=== PATIENT | female | born 1945 | race Caucasian/White ===

== ENCOUNTER 2016-11-29 12:27 | Inpatient (IN) | payer MEDICARE ==
[~2016-11-29] VITALS: Ht 177.8 cm; Wt 128.5 kg
[~2016-11-29 12:27] MED LIST: ASPI-496 PO; ATEN50TA41 PO; CITA40TA5 PO; CLON-365 PO; DILT60TA30 PO; DOCU-30 PO; FERR325T10 PO; FISH1CAP PO; FURO20TA3 PO; GABA300C10 PO; HYDR-3307 PO; LEVO100T5 PO; METH750T87 PO; NIAC500T9 PO; OMEG-69 PO; OMEP-110 PO; POTA10TA5 PO; ROPI2TAB4 PO; TAMS0.4C2 PO; VITA150T PO; cranberry PO
[2016-11-29 13:09] VITALS: BP 144/78
[2016-11-29] MEDS ORDERED: BUPIVACAINE/PF-EPI 0.25% 1:200K ONE (14:27)
[2016-11-29] MEDS ORDERED: BACITRACIN 50,000 UNIT ONE (14:27)
[2016-11-29] MEDS ORDERED: NEOSPORIN OINT, 15GM ONE (14:27)
[2016-11-29] MEDS ORDERED: THROMBIN 5,000 UNIT VIAL TP ONE (14:27)
[2016-11-29] MEDS ORDERED: VANCOMYCIN 1,000 MG ONE (14:32)
[2016-11-29] MEDS ORDERED: FENTANYL PF 250 MCG/5ML ONE (14:36)
[2016-11-29] MEDS ORDERED: KETAMINE 10 MG/ML, 20ML ONE (14:36)
[2016-11-29] MEDS ORDERED: LIDOCAINE 2% 100MG/5ML SYRINGE ONE (14:40)
[2016-11-29] MEDS ORDERED: SUCCINYLCHOLINE 20 MG/ML, 10ML ONE (14:40)
[2016-11-29] MEDS ORDERED: ROCURONIUM 10 MG/ML ONE (14:40)
[2016-11-29] MEDS ORDERED: PROPOFOL 10 MG/ML, 20ML ONE (14:40)
[2016-11-29] MEDS ORDERED: ONDANSETRON 2MG/ML, 2ML ONE (14:40)
[2016-11-29] MEDS ORDERED: LABETALOL 5MG/ML ONE (14:40)
[2016-11-29] MEDS ORDERED: CEFAZOLIN 1,000 MG ONE (14:40)
[2016-11-29] MEDS ORDERED: BUPIVACAINE/PF 0.25% ONE (15:52)
[2016-11-29] MEDS ORDERED: PROMETHAZINE 25 MG/ML, 1ML IV PRN (16:00)
[2016-11-29] MEDS ORDERED: FENTANYL PF 100 MCG/2ML IV PRN (16:00)
[2016-11-29] MEDS ORDERED: ONDANSETRON 2MG/ML, 2ML IVPush PRN (16:00)
[2016-11-29] MEDS ORDERED: LABETALOL 5MG/ML, 20ML IV PRN ×2 (16:00→18:30)
[2016-11-29] MEDS ORDERED: METOPROLOL 1 MG/ML, 5ML IV PRN (16:00)
[2016-11-29] MEDS ORDERED: hydrALAzine 20 MG/ML, 1ML IV PRN (16:00)
[2016-11-29] MEDS ORDERED: OXYcodone 5 MG/5 ML ORAL.SOL UDC PO PRN (16:00)
[2016-11-29] MEDS ORDERED: HYDROmorphone 2 MG/ML, 1ML ONE (16:33)
[2016-11-29] MEDS ORDERED: OXYcodone 5 MG/5 ML ORAL.SOL UDC ONE (16:33)
[2016-11-29] MEDS: HYDROmorphone 1 MG/ML, 1ML IV PRN ×2 (16:35→16:50)
[2016-11-29] MEDS ORDERED: DIAZEPAM 5 MG/ML, 2ML ONE (16:46)
[2016-11-29] MEDS ORDERED: DIAZEPAM 5 MG/ML, 2ML IV PRN (17:30)
[2016-11-29 18:22] VITALS: BP 116/74
[2016-11-29] MEDS ORDERED: ONDANSETRON 2MG/ML, 2ML IV PRN (18:30)
[2016-11-29] MEDS ORDERED: morphine SULFATE 10 MG/ML, 1ML IV PRN (18:30)
[2016-11-29] MEDS ORDERED: MAGNESIUM HYDROXIDE 8%, 30ML UDC PO PRN (18:30)
[2016-11-29] MEDS ORDERED: DIPHENHYDRAMINE 50 MG CAPSULE PO PRN (18:30)
[2016-11-29] MEDS ORDERED: HYDROcodone/APAP 5/325 TABLET PO PRN (18:30)
[2016-11-29] MEDS ORDERED: BISACODYL 10 MG SUPP PR PRN (18:30)
[2016-11-29] MEDS ORDERED: PROMETHAZINE 25 MG/ML, 1ML IM PRN (18:30)
[2016-11-29] MEDS: D5%-0.9% NACL+KCL 20MEQ 1,000 ML IV SCH (20:32)
[2016-11-29] MEDS: METHOCARBAMOL 750 MG TABLET PO PRN (20:33)
[2016-11-29] MEDS: OXYcodone/APAP 5/325MG TABLET PO PRN (20:33)
[2016-11-29] MEDS ORDERED: HYDROcodone/APAP 10/325 MG TABLET PO PRN (21:00)
[2016-11-29] MEDS ORDERED: ZOLPIDEM 5MG TABLET PO PRN (21:00)
[2016-11-29] MEDS ORDERED: DOCUSATE 100 MG CAPSULE PO PRN (21:00)
[2016-11-29] MEDS: ROPINIROLE 1MG TABLET PO SCH (23:05)
[2016-11-29] MEDS: GABAPENTIN 400 MG CAPSULE PO SCH (23:05)
[2016-11-29] MEDS: DILTIAZEM 60 MG TABLET PO SCH (23:05)
[2016-11-29] MEDS: CEFAZOLIN PMX 1GM/50ML 50 ML IVPB SCH (23:06)
[2016-11-29 23:55] VITALS: BP 108/73
[2016-11-30] MEDS: OXYcodone/APAP 5/325MG TABLET PO PRN ×4 (00:20→20:12)
[2016-11-30 03:39] VITALS: BP 104/63
[2016-11-30] MEDS: METHOCARBAMOL 750 MG TABLET PO PRN ×2 (04:25→20:40)
[2016-11-30] MEDS: D5%-0.9% NACL+KCL 20MEQ 1,000 ML IV SCH ×2 (05:45→14:58)
[2016-11-30] MEDS: ROPINIROLE 1MG TABLET PO SCH ×4 (06:52→20:13)
[2016-11-30] MEDS: CEFAZOLIN PMX 1GM/50ML 50 ML IVPB SCH ×2 (06:52→16:10)
[2016-11-30] MEDS: OMEPRAZOLE 20 MG CAPSULE.DR PO SCH (06:53)
[2016-11-30] MEDS: ATENOLOL 50 MG TABLET PO SCH (06:53)
[2016-11-30] MEDS: LEVOTHYROXINE 100 MCG TABLET PO SCH (06:53)
[2016-11-30 07:42] VITALS: BP 81/51
[2016-11-30] MEDS: CITALOPRAM 20 MG TABLET PO SCH (08:35)
[2016-11-30] MEDS: TAMSULOSIN 0.4 MG CAP.ER.24H PO SCH (08:35)
[2016-11-30] MEDS: DOXYCYCLINE 100MG TABLET PO SCH ×2 (08:35→20:13)
[2016-11-30] MEDS: GABAPENTIN 400 MG CAPSULE PO SCH ×2 (08:35→20:13)
[2016-11-30] MEDS: VITAMIN E 400 UNITS CAPSULE PO SCH (08:35)
[2016-11-30] MEDS: SENNA/DOCUSATE TABLET PO SCH (08:55)
[2016-11-30] MEDS: DILTIAZEM 60 MG TABLET PO SCH ×2 (10:40→20:46)
[2016-11-30 15:03] VITALS: BP 80/50
[2016-11-30 20:58] VITALS: BP 94/57
[2016-12-01] MEDS: OXYcodone/APAP 5/325MG TABLET PO PRN ×3 (00:08→12:09)
[2016-12-01] MEDS: CEFAZOLIN PMX 1GM/50ML 50 ML IVPB SCH ×2 (00:09→09:01)
[2016-12-01] MEDS: D5%-0.9% NACL+KCL 20MEQ 1,000 ML IV SCH ×2 (00:18→10:30)
[2016-12-01 02:41] VITALS: BP 106/69
[2016-12-01] MEDS: LEVOTHYROXINE 100 MCG TABLET PO SCH (06:37)
[2016-12-01] MEDS: ROPINIROLE 1MG TABLET PO SCH ×2 (06:37→11:48)
[2016-12-01 07:16] VITALS: BP 105/67
[2016-12-01 08:59] VITALS: BP 107/67
[2016-12-01] MEDS: ATENOLOL 50 MG TABLET PO SCH (08:59)
[2016-12-01] MEDS: VITAMIN E 400 UNITS CAPSULE PO SCH (09:01)
[2016-12-01] MEDS: DILTIAZEM 60 MG TABLET PO SCH (09:01)
[2016-12-01] MEDS: TAMSULOSIN 0.4 MG CAP.ER.24H PO SCH (09:01)
[2016-12-01] MEDS: SENNA/DOCUSATE TABLET PO SCH (09:01)
[2016-12-01] MEDS: DOXYCYCLINE 100MG TABLET PO SCH (09:02)
[2016-12-01] MEDS: OMEPRAZOLE 20 MG CAPSULE.DR PO SCH (09:02)
[2016-12-01] MEDS: GABAPENTIN 400 MG CAPSULE PO SCH (09:02)
[2016-12-01] MEDS: CITALOPRAM 20 MG TABLET PO SCH (09:02)
[2016-12-01] MEDS ORDERED: OXYC-302 PO (12:29)
[2016-12-01] MEDS ORDERED: DOXY100T PO (12:30)
== END 2016-12-01 12:50 | disposition home or self-care (01) | DRG 908 ==
LOC: OR 12:27 → 4NOR 12:50 → OR 18:07 → 4NOR 18:08 → DCLOUNGE 12-01 12:27
PROVIDERS: ADMIT Neurological Surgery; ATTEND Neurological Surgery
PROC: 01NB0ZZ Release Lumbar Nerve, Open Approach (ICD-10-PCS; 2016-11-29)
PROC: 0T9B70Z Drainage of Bladder with Drainage Device, Via Natural or Artificial Opening (ICD-10-PCS; 2016-11-29)
PROC: 009U0ZZ Drainage of Spinal Canal, Open Approach (ICD-10-PCS; principal; 2016-11-29 15:00)
PROC: 5A09357 Assistance with Respiratory Ventilation, Less than 24 Consecutive Hours, Continuous Positive Airway Pressure (ICD-10-PCS; 2016-11-30)
DX: G97.63 Postprocedural seroma of a nervous system organ or structure following a nervous system procedure (principal); Z68.41 Body mass index [BMI] 40.0-44.9, adult; M48.06 Spinal stenosis, lumbar region; M47.816 Spondylosis without myelopathy or radiculopathy, lumbar region; E66.01 Morbid (severe) obesity due to excess calories; M54.9 Dorsalgia, unspecified; Z88.8 Allergy status to other drugs, medicaments and biological substances; Z87.891 Personal history of nicotine dependence; R33.9 Retention of urine, unspecified; R20.0 Anesthesia of skin
CPT/HCPCS: 81003; 87070; 87075; 87205; J0690; J1170; J2405; J2704; J3010; J3360; J3370; J3490; J0330; J3480

== ENCOUNTER 2018-06-04 14:08 | Emergency (ER) | payer MEDICARE ==
[~2018-06-04] VITALS: Ht 175.3 cm; Wt 139.5 kg
[~2018-06-04 14:08] MED LIST changes: -CLON-365 PO; +CLON1TAB11 PO; +DOCU-131 PO; -DOCU-30 PO; +DOXY100T PO; -FERR325T10 PO; +FERR325T17 PO; +OXYC-302 PO
[2018-06-04] MEDS ORDERED: GABA-827 PO (14:51)
[2018-06-04 14:54] LABS: MD YES
[2018-06-04] MEDS ORDERED: CRAN500C PO (14:54)
[2018-06-04 15:01] LABS: MEAN CORPUSCULAR HEMOGLOBIN 19.4 pg (27.0-34.8); MEAN CORPUSCULAR VOLUME 65.3 fL (80-100); MEAN PLATELET VOLUME 7.8 fL (7.4-10.4); PLATELET COUNT 372 x10^3/uL (130-400); RED BLOOD COUNT 3.65 x10^6/uL (3.82-5.3); RED CELL DISTRIBUTION WIDTH 18.9 % (9.6-15.2)
[2018-06-04 15:08] LABS: ALBUMIN 3.5 g/dL (3.4-5.0); ANION GAP 8 mmol/L (5-15); CALCIUM 8.7 mg/dL (8.5-10.1); CHLORIDE 103 mmol/L (98-107); CREATININE 0.98 mg/dL (0.55-1.02)
[2018-06-04 15:48] LABS: ANISOCYTOSIS 1+; BAND#(MANUAL) 0.17 x10^3/uL; BANDS%(MANUAL) 2 % (0-7); EOS#(MANUAL) 0.42 x10^3/uL (0.0-0.4); EOS% (MANUAL) 5 % (1-7); LYMPHS% (MANUAL) 19 % (22-44); MEAN CORPUSCULAR HGB CONC 29.7 g/dL (32.4-35.8); MONOS#(MANUAL) 0.42 x10^3/uL (0.3-2.7); MONOS% (MANUAL) 5 % (2-9); SEGS% (MANUAL) 69 % (42-75)
[2018-06-04 15:49] LABS: <PLATELET ESTIMATE> ADEQUATE; <PLT MORPHOLOGY> NORMAL PLT MORPH; HYPOCHROMIA 1+; MICROCYTOSIS 1+; OVALOCYTES 1+; POLYCHROMASIA 1+
[2018-06-04 16:07] VITALS: BP 138/64
[2018-06-04 16:24] VITALS: BP 138/64
[2018-06-04] MEDS ORDERED: ADENOSINE 6 MG/2 ML ONE (16:28)
[2018-06-04 18:12] VITALS: BP_SYST 154; BP_SYST 157; BP_DIAS 53; BP_DIAS 71
[2018-06-04 19:34] VITALS: BP 166/66
[2018-06-04 20:06] VITALS: BP 159/72
== END 2018-06-04 20:08 | disposition home or self-care (01) ==
LOC: ED 16:40
DX: K92.2 Gastrointestinal hemorrhage, unspecified (principal); D50.0 Iron deficiency anemia secondary to blood loss (chronic); I10 Essential (primary) hypertension; G62.9 Polyneuropathy, unspecified; Z87.891 Personal history of nicotine dependence
CPT/HCPCS: 36415; 80048; 82040; 85025; 86850; 86900; 86923; 99284; P9016

== ENCOUNTER 2018-08-06 13:30 | Inpatient (IN) | payer MEDICARE ==
[~2018-08-06] VITALS: Ht 167.6 cm; Wt 142.0 kg
[2018-08-06] VITALS (7 sets, daily range): BP systolic 98–132; BP diastolic 34–80
[~2018-08-06 13:30] MED LIST changes: +CARV12.52 PO; +CRAN500C PO; +GABA-827 PO
[2018-08-06] MEDS ORDERED: IRON (14:21)
[2018-08-06 14:24] LABS: MEAN CORPUSCULAR HEMOGLOBIN 25.7 pg (27.0-34.8); MEAN CORPUSCULAR HGB CONC 32.1 g/dL (32.4-35.8); MEAN PLATELET VOLUME 7.7 fL (7.4-10.4); PLATELET COUNT 296 x10^3/uL (130-400)
[2018-08-06 14:26] LABS: ANION GAP 9 mmol/L (5-15); CHLORIDE 105 mmol/L (98-107)
[2018-08-06 14:27] LABS: INTERNATIONAL NORMALIZED RATIO 1.07 (0.93-1.1); PROTHROMBIN TIME 11.3 Seconds (9.6-11.5)
[2018-08-06] MEDS ORDERED: SODIUM CHLORIDE FLUSH 10ML SYR IVF ONE (14:30)
[2018-08-06 14:54] LABS: % IRON SATURATION 3 % (20-55); IRON LEVEL 11 mcg/dL (50-170); TOTAL IRON BINDING CAPACITY 416 mcg/dL (250-450)
[2018-08-06 14:57] LABS: MD YES
[2018-08-06 15:00] LABS: EOS#(MANUAL) 0.16 x10^3/uL (0.0-0.4); EOS% (MANUAL) 2 % (1-7); LYMPH#(MANUAL) 1.22 x10^3/uL (1-3.4); LYMPHS% (MANUAL) 15 % (22-44); MONOS#(MANUAL) 0.81 x10^3/uL (0.3-2.7); MONOS% (MANUAL) 10 % (2-9); SEG#(MANUAL) 5.91 x10^3/uL (1.8-6.8); SEGS% (MANUAL) 73 % (42-75)
[2018-08-06 15:01] LABS: ANISOCYTOSIS 2+; MICROCYTOSIS 2+
[2018-08-06 15:02] LABS: HYPOCHROMIA 2+; POLYCHROMASIA 1+
[2018-08-06 15:03] LABS: <PLATELET ESTIMATE> ADEQUATE; OVALOCYTES 1+
[2018-08-06 15:04] LABS: <PLT MORPHOLOGY> NORMAL PLT MORPH
[2018-08-06] MEDS ORDERED: ONDANSETRON 2MG/ML, 2ML IVPush PRN (16:00)
[2018-08-06] MEDS ORDERED: ACETAMINOPHEN 325 MG TABLET PO PRN (16:00)
[2018-08-06] MEDS ORDERED: GOLYTELY 4,000ML ORAL.SOL PO ONE (17:00)
[2018-08-06] MEDS: CARVEDILOL 12.5 MG TABLET PO SCH (21:13)
[2018-08-06] MEDS: TAMSULOSIN 0.4 MG CAP.ER.24H PO SCH (21:13)
[2018-08-06] MEDS: GABAPENTIN 400 MG CAPSULE PO SCH (21:13)
[2018-08-07] VITALS (10 sets, daily range): BP systolic 110–146; BP diastolic 66–83
[2018-08-07] MEDS ORDERED: GOLYTELY 4,000ML ORAL.SOL ONE (02:22)
[2018-08-07 05:27] LABS: ANION GAP 6 mmol/L (5-15); CALCIUM 8.2 mg/dL (8.5-10.1); CHLORIDE 106 mmol/L (98-107); CREATININE 0.97 mg/dL (0.55-1.02)
[2018-08-07] MEDS: LEVOTHYROXINE 100 MCG TABLET PO SCH ×2 (05:31→08:37)
[2018-08-07 05:45] LABS: MEAN CORPUSCULAR HEMOGLOBIN 27.9 pg (27.0-34.8); MEAN CORPUSCULAR HGB CONC 33.4 g/dL (32.4-35.8); MEAN CORPUSCULAR VOLUME 83.7 fL (80-100); PLATELET COUNT 292 x10^3/uL (130-400); RED BLOOD COUNT 2.64 x10^6/uL (3.82-5.3); RED CELL DISTRIBUTION WIDTH 20.1 % (9.6-15.2)
[2018-08-07 06:06] LABS: MD YES
[2018-08-07 06:27] LABS: EOS#(MANUAL) 0.17 x10^3/uL (0.0-0.4); EOS% (MANUAL) 2 % (1-7); LYMPH#(MANUAL) 1.03 x10^3/uL (1-3.4); LYMPHS% (MANUAL) 12 % (22-44); MONOS#(MANUAL) 0.17 x10^3/uL (0.3-2.7); MONOS% (MANUAL) 2 % (2-9); SEG#(MANUAL) 7.22 x10^3/uL (1.8-6.8); SEGS% (MANUAL) 84 % (42-75)
[2018-08-07 06:37] LABS: <PLATELET ESTIMATE> ADEQUATE; <PLT MORPHOLOGY> NORMAL PLT MORPH; ANISOCYTOSIS 2+; HYPOCHROMIA 1+; MICROCYTOSIS 1+; OVALOCYTES 1+
[2018-08-07] MEDS ORDERED: MIDAZOLAM 1 MG/ML, 2ML ONE (07:49)
[2018-08-07] MEDS ORDERED: FENTANYL PF 250 MCG/5ML ONE (07:50)
[2018-08-07] MEDS ORDERED: PROPOFOL 10 MG/ML, 20ML ONE (08:05)
[2018-08-07] MEDS ORDERED: GLYCOPYRROLATE 0.2MG/1ML, 5ML ONE (08:05)
[2018-08-07] MEDS ORDERED: ROCURONIUM 10MG/ML,5ML ONE (08:05)
[2018-08-07] MEDS ORDERED: SUCCINYLCHOLINE 20 MG/ML, 10ML ONE (08:05)
[2018-08-07] MEDS ORDERED: NEOSTIGMINE 1 MG/ML, 10ML ONE (08:05)
[2018-08-07] MEDS: PANTOPRAZOLE 40 MG IV IVPush SCH (08:37)
[2018-08-07] MEDS: GABAPENTIN 400 MG CAPSULE PO SCH ×2 (08:37→21:05)
[2018-08-07] MEDS: CARVEDILOL 12.5 MG TABLET PO SCH ×2 (08:37→21:00)
[2018-08-07] MEDS ORDERED: OMEPRAZOLE 20 MG CAPSULE.DR PO SCH (09:00)
[2018-08-07] MEDS ORDERED: LEVOTHYROXINE 100 MCG TABLET PO SCH (09:00)
[2018-08-07] MEDS ORDERED: FENTANYL PF 100 MCG/2ML IV PRN (09:30)
[2018-08-07] MEDS ORDERED: ONDANSETRON ODT 8 MG PO PRN (09:30)
[2018-08-07] MEDS ORDERED: hydrALAzine 20 MG/ML, 1ML IV PRN (09:30)
[2018-08-07] MEDS ORDERED: ONDANSETRON 2MG/ML, 2ML IV PRN (09:30)
[2018-08-07] MEDS ORDERED: OXYcodone 5 MG/5 ML ORAL.SOL UDC PO PRN (09:30)
[2018-08-07] MEDS ORDERED: LABETALOL 5MG/ML, 20ML IV PRN (09:30)
[2018-08-07] MEDS ORDERED: HYDROmorphone 1 MG/ML, 1ML IV PRN (09:30)
[2018-08-07] MEDS ORDERED: PROMETHAZINE 12.5 MG SUPP PR PRN (09:30)
[2018-08-07] MEDS: IRON SUCROSE COMPLEX 100MG/5ML IV SCH (11:58)
[2018-08-07] MEDS ORDERED: PREG150C PO (15:03)
[2018-08-07] MEDS ORDERED: PRAM1.5T7 PO (15:04)
[2018-08-07] MEDS ORDERED: HYDR25SU21 RC (16:15)
[2018-08-07] MEDS: HYDROCORTISONE 25 MG SUPP PR SCH (16:34)
[2018-08-07] MEDS ORDERED: FUROSEMIDE 20 MG/2 ML IV ONE (18:00)
[2018-08-07] MEDS ORDERED: TEMPLATE NON-FORMULARY MED. (Cranberry Extract** (Cran-Max**) 500 MG) PO SCH (21:00)
[2018-08-07] MEDS: PRAMIPEXOLE 0.5MG TABLET PO SCH (21:05)
[2018-08-07] MEDS: PREGABALIN 150 MG CAPSULE PO SCH (21:05)
[2018-08-07] MEDS: TAMSULOSIN 0.4 MG CAP.ER.24H PO SCH (21:05)
[2018-08-08 04:39] VITALS: BP 138/79
[2018-08-08 04:59] LABS: MEAN CORPUSCULAR HEMOGLOBIN 27.5 pg (27.0-34.8); MEAN CORPUSCULAR HGB CONC 32.8 g/dL (32.4-35.8); MEAN CORPUSCULAR VOLUME 83.8 fL (80-100); MEAN PLATELET VOLUME 7.8 fL (7.4-10.4); PLATELET COUNT 297 x10^3/uL (130-400); RED BLOOD COUNT 3.03 x10^6/uL (3.82-5.3)
[2018-08-08 06:00] LABS: BASOPHILS # (AUTO) 0.03 x10^3/uL (0-0.1); BASOPHILS % (AUTO) 1 % (0-1); EOSINOPHILS # (AUTO) 0.25 x10^3/uL (0-0.4); EOSINOPHILS % (AUTO) 3 % (1-7); LYMPHOCYTES # (AUTO) 1.22 x10^3/uL (1-3.4); LYMPHOCYTES % (AUTO) 17 % (22-44); MD SCAN; MONOCYTES # (AUTO) 0.58 x10^3/uL (0.2-0.8); MONOCYTES % (AUTO) 8 % (2-9); NEUTROPHILS # (AUTO) 5.29 x10^3/uL (1.8-6.8); NEUTROPHILS % (AUTO) 72 % (42-75)
[2018-08-08 08:05] VITALS: BP 140/82
[2018-08-08] MEDS ORDERED: CITALOPRAM 20 MG TABLET PO SCH (09:00)
[2018-08-08] MEDS: PREGABALIN 150 MG CAPSULE PO SCH (10:01)
[2018-08-08] MEDS: IRON SUCROSE COMPLEX 100MG/5ML IV SCH (10:01)
[2018-08-08] MEDS: PANTOPRAZOLE 40 MG IV IVPush SCH (10:01)
[2018-08-08] MEDS: GABAPENTIN 400 MG CAPSULE PO SCH (10:01)
[2018-08-08] MEDS: PRAMIPEXOLE 0.5MG TABLET PO SCH (10:02)
[2018-08-08] MEDS: CARVEDILOL 12.5 MG TABLET PO SCH (10:03)
[2018-08-08] MEDS: LEVOTHYROXINE 100 MCG TABLET PO SCH (10:03)
[2018-08-08] MEDS: HYDROCORTISONE 25 MG SUPP PR SCH (10:04)
== END 2018-08-08 14:45 | disposition home or self-care (01) | DRG 394 ==
LOC: ED 14:39 → EDIP 14:40 → ED 14:46 → 3NW 16:15
PROVIDERS: ADMIT Internal Medicine; ATTEND Internal Medicine
PROC: 30233N1 Transfusion of Nonautologous Red Blood Cells into Peripheral Vein, Percutaneous Approach (ICD-10-PCS; 2018-08-06)
PROC: 0DB68ZX Excision of Stomach, Via Natural or Artificial Opening Endoscopic, Diagnostic (ICD-10-PCS; 2018-08-07)
PROC: 0DBM8ZX Excision of Descending Colon, Via Natural or Artificial Opening Endoscopic, Diagnostic (ICD-10-PCS; 2018-08-07)
PROC: 0DBL8ZX Excision of Transverse Colon, Via Natural or Artificial Opening Endoscopic, Diagnostic (ICD-10-PCS; 2018-08-07)
PROC: 0DB98ZX Excision of Duodenum, Via Natural or Artificial Opening Endoscopic, Diagnostic (ICD-10-PCS; principal; 2018-08-07 08:00)
DX: K64.8 Other hemorrhoids (principal); Q27.30 Arteriovenous malformation, site unspecified; K90.9 Intestinal malabsorption, unspecified; D62 Acute posthemorrhagic anemia; I42.2 Other hypertrophic cardiomyopathy; J96.10 Chronic respiratory failure, unspecified whether with hypoxia or hypercapnia; Z68.43 Body mass index [BMI] 50.0-59.9, adult; K64.4 Residual hemorrhoidal skin tags; K57.30 Diverticulosis of large intestine without perforation or abscess without bleeding; K44.9 Diaphragmatic hernia without obstruction or gangrene; G47.33 Obstructive sleep apnea (adult) (pediatric); E66.01 Morbid (severe) obesity due to excess calories; E03.9 Hypothyroidism, unspecified; D50.9 Iron deficiency anemia, unspecified; G62.9 Polyneuropathy, unspecified; K52.9 Noninfective gastroenteritis and colitis, unspecified; I10 Essential (primary) hypertension; Z82.49 Family history of ischemic heart disease and other diseases of the circulatory system; Z87.891 Personal history of nicotine dependence; Z90.710 Acquired absence of both cervix and uterus; Z99.81 Dependence on supplemental oxygen; Z82.3 Family history of stroke; Z79.82 Long term (current) use of aspirin; Z88.8 Allergy status to other drugs, medicaments and biological substances
CPT/HCPCS: 36415; 80048; 82040; 82728; 83540; 83550; 84443; 84466; 85018; 85025; 85610; 85730; 86850; 86900; 86923; 88305; 90656; 93005; 99285; G0378; J1756; J2250; J2704; J2710; J3010; J3490; C9113; J0330; J1940; P9016

== ENCOUNTER 2018-08-19 13:24 | Inpatient (IN) | payer MEDICARE ==
[~2018-08-19] VITALS: Ht 177.8 cm; Wt 142.0 kg
[~2018-08-19 13:24] MED LIST changes: +HYDR25SU21 RC; +IRON; +PRAM1.5T7 PO; +PREG150C PO
--- NOTE | 2018-08-19 14:05 | NUR ---
ASSUMED CARE OF PT AT THIS TIME FROM LOBBY. AMBULATORY TO ROOM VIA OWN WHEELCHAIR/WALKER ACCOMPANIED BY FRIEND. 72 Y/[address] FULLER'S OFFICE FOR BLOOD TRANSFUSION. PER PT "I WAS AT 8.9 ON THURSDAY, GOT 2 UNITS ON THURSDAY AND THEN TODAY THEY SAID I WAS BACK DOWN TO 6.5 AND NEEDED ANOTHER TRANSFUSION. [address] LANDAVERDE DID COLONOSCOPY AND FOUND I HAVE HEMORRHOIDS, PLAN TO REMOVED Aug, THEY THINK THAT IS PART OF WHY I'M BLEEDING, I'VE BEEN SHORT OF BREATH AND USING 2L OF OXYGEN." DENIES ANY PAIN, CP, DIZZINESS. PT PALE, A&OX4. AWAITING EVAL BY ERP. CONT PULSE OX, BP, CARDIAC MONITORS APPLIED. VSS. FALL PRECAUTIONS IN PLACE. SIDE RAILS UPX2. ASSESSMENT COMPLETED. PT AMBULATED TO RESTROOM WITH OWN WALKER, STEADY GAIT, CLEAN CATCH UA COLLECTED. FRIEND AT BEDSIDE
--- NOTE | 2018-08-19 14:15 | NUR ---
DR. REED AT BEDSIDE FOR EVAL, AWAITING ORDERS
--- NOTE | 2018-08-19 14:24 | NUR ---
RAD AT BEDSIDE
[2018-08-19] MEDS ORDERED: SODIUM CHLORIDE FLUSH 10ML SYR IVF ONE (14:30)
[2018-08-19 14:35] LABS: MICROSCOPIC AUTO
[2018-08-19 14:36] LABS: CULTURE INDICATED? YES
--- NOTE | 2018-08-19 14:54 | NUR ---
RECEIVED REPORT FROM CATALINA ANGELES.
--- NOTE | 2018-08-19 14:55 | NUR ---
INFORMED CONSENT PROVIED TO PT BY DR. REED FOR BLOOD TRANSFUSION, CONSENT SIGNED BY PT AND MD AND PLACED ON PAPER CHART.
--- NOTE | 2018-08-19 15:00 | NUR ---
BEDSIDE REPORT AND CARE TO ANALY ARNOLD AT THIS TIME.
[2018-08-19 15:07] LABS: INTERNATIONAL NORMALIZED RATIO 1.07 (0.93-1.1); PROTHROMBIN TIME 11.3 Seconds (9.6-11.5)
[2018-08-19 15:09] LABS: ALANINE AMINOTRANSFERASE 20 U/L (12-78); ALBUMIN 3.1 g/dL (3.4-5.0); ANION GAP 5 mmol/L (5-15); CALCIUM 8.1 mg/dL (8.5-10.1); CHLORIDE 105 mmol/L (98-107); CREATININE 1.22 mg/dL (0.55-1.02)
--- NOTE | 2018-08-19 15:09 | NUR ---
PT BP NOTED TO HAVE DROPPED FROM 103/58 IN TRIAGE TO 85/40. ERP AWARE. PT TO RECEIVE BLOOD TRANSFUSION.
[2018-08-19 15:11] LABS: MEAN CORPUSCULAR HEMOGLOBIN 27.7 pg (27.0-34.8); MEAN CORPUSCULAR HGB CONC 31.6 g/dL (32.4-35.8); MEAN CORPUSCULAR VOLUME 87.6 fL (80-100); MEAN PLATELET VOLUME 8.4 fL (7.4-10.4); PLATELET COUNT 294 x10^3/uL (130-400); RED BLOOD COUNT 2.25 x10^6/uL (3.82-5.3); RED CELL DISTRIBUTION WIDTH 20.7 % (9.6-15.2)
[2018-08-19 15:12] LABS: ALKALINE PHOSPHATASE 59 U/L (45-117); BILIRUBIN,TOTAL 0.4 mg/dL (0.2-1.0); TOTAL PROTEIN 6.7 g/dL (6.4-8.2)
--- NOTE | 2018-08-19 15:20 | NUR ---
ERP NOTIFIED OF PT CXR. NO NEW ORDERS FOR BLOOD CULTURES/ANTX AT THIS TIME.
--- NOTE | 2018-08-19 15:29 | NUR ---
DOUGH MIXER: BLOOD BANK CALLED, BLOOD IS BEING PREPARED AT THIS TIME, SENDING PURPLE SLIP AT THIS TIME
[2018-08-19] MEDS ORDERED: SODIUM CHLORIDE 0.9% 1,000 ML IV ONE (15:41)
[2018-08-19 15:48] LABS: BASOPHILS # (AUTO) 0.02 x10^3/uL (0-0.1); BASOPHILS % (AUTO) 0 % (0-1); EOSINOPHILS # (AUTO) 0.19 x10^3/uL (0-0.4); EOSINOPHILS % (AUTO) 3 % (1-7); LYMPHOCYTES # (AUTO) 1.33 x10^3/uL (1-3.4); LYMPHOCYTES % (AUTO) 20 % (22-44); MD MORPH REVIEW ONLY; MONOCYTES # (AUTO) 0.48 x10^3/uL (0.2-0.8); MONOCYTES % (AUTO) 7 % (2-9); NEUTROPHILS # (AUTO) 4.53 x10^3/uL (1.8-6.8); NEUTROPHILS % (AUTO) 69 % (42-75)
[2018-08-19 15:49] LABS: <PLATELET ESTIMATE> ADEQUATE; <PLT MORPHOLOGY> NORMAL PLT MORPH; ANISOCYTOSIS 2+; HYPOCHROMIA 1+; MICROCYTOSIS 1+; OVALOCYTES 1+; POLYCHROMASIA 1+; TARGET CELLS 1+
[2018-08-19] MEDS ORDERED: SODIUM CHLORIDE FLUSH 10ML SYR IVF PRN (16:00)
[2018-08-19 16:04] VITALS: BP 75/33
[2018-08-19] MEDS ORDERED: SODIUM CHLORIDE 0.9% 1,000 ML IV SCH (16:19)
[2018-08-19 16:21] VITALS: BP 82/40
[2018-08-19] MEDS ORDERED: ACETAMINOPHEN 325 MG TABLET PO PRN (16:30)
[2018-08-19] MEDS ORDERED: DOCUSATE 100 MG CAPSULE PO PRN (16:30)
--- NOTE | 2018-08-19 16:32 | NUR ---
BLOOD INFUSING AT THIS TIME.
[2018-08-19 16:46] VITALS: BP 100/43
--- NOTE | 2018-08-19 16:46 | NUR ---
PT RESTING ON GURNEY. NADN. PERKINS.
--- NOTE | 2018-08-19 17:25 | NUR ---
PT RESTING ON ANI. ANÍBAL. VSS. BLOOD STILL INFUSING.
--- NOTE | 2018-08-19 17:42 | NUR ---
PT RESTING ON GURNEY. NADN. PERKINS.
[2018-08-19 18:18] VITALS: BP 114/42
--- NOTE | 2018-08-19 18:26 | NUR ---
BLOOD TRANSFUSION COMPLETE. PT RESTING ON ANI. NADN. PERKINS.
--- NOTE | 2018-08-19 18:35 | NUR ---
REPORT GIVEN TO LEXA KIRKPATRICK RN. ALL QUESTIONS ANSWERED. AWAITING PT TRANSPORT.
[2018-08-19 19:25] VITALS: BP 124/74
[2018-08-19 19:29] VITALS: BP 134/75
[2018-08-19] MEDS: TAMSULOSIN 0.4 MG CAP.ER.24H PO SCH (20:26)
[2018-08-19] MEDS: GABAPENTIN 400 MG CAPSULE PO SCH (20:26)
[2018-08-19] MEDS: PREGABALIN 150 MG CAPSULE PO SCH (20:27)
[2018-08-19] MEDS: PRAMIPEXOLE 0.5MG TABLET PO SCH (20:27)
[2018-08-20] VITALS (11 sets, daily range): BP systolic 94–145; BP diastolic 50–86
[2018-08-20 06:32] LABS: MEAN CORPUSCULAR HEMOGLOBIN 27.7 pg (27.0-34.8); MEAN CORPUSCULAR HGB CONC 32.3 g/dL (32.4-35.8); MEAN CORPUSCULAR VOLUME 85.9 fL (80-100); MEAN PLATELET VOLUME 7.8 fL (7.4-10.4); PLATELET COUNT 274 x10^3/uL (130-400); RED BLOOD COUNT 2.37 x10^6/uL (3.82-5.3); RED CELL DISTRIBUTION WIDTH 20.2 % (9.6-15.2)
[2018-08-20 06:37] LABS: CHLORIDE 110 mmol/L (98-107)
[2018-08-20 06:42] LABS: ANION GAP 6 mmol/L (5-15); CALCIUM 7.9 mg/dL (8.5-10.1); CREATININE 1.03 mg/dL (0.55-1.02)
[2018-08-20 07:39] LABS: BASOPHILS # (AUTO) 0.04 x10^3/uL (0-0.1); BASOPHILS % (AUTO) 1 % (0-1); EOSINOPHILS # (AUTO) 0.28 x10^3/uL (0-0.4); EOSINOPHILS % (AUTO) 5 % (1-7); LYMPHOCYTES # (AUTO) 1.32 x10^3/uL (1-3.4); LYMPHOCYTES % (AUTO) 23 % (22-44); MD SCAN; MONOCYTES # (AUTO) 0.61 x10^3/uL (0.2-0.8); MONOCYTES % (AUTO) 11 % (2-9); NEUTROPHILS # (AUTO) 3.47 x10^3/uL (1.8-6.8); NEUTROPHILS % (AUTO) 61 % (42-75)
[2018-08-20] MEDS: PREGABALIN 150 MG CAPSULE PO SCH ×2 (09:00→20:33)
[2018-08-20] MEDS: PRAMIPEXOLE 0.5MG TABLET PO SCH ×2 (09:00→20:33)
[2018-08-20] MEDS: LEVOTHYROXINE 100 MCG TABLET PO SCH (09:00)
[2018-08-20] MEDS: GABAPENTIN 400 MG CAPSULE PO SCH ×2 (09:00→20:33)
[2018-08-20] MEDS: HYDROCORTISONE 25 MG SUPP PR SCH (10:20)
[2018-08-20] MEDS ORDERED: MIDAZOLAM 1 MG/ML, 5ML ONE (15:02)
[2018-08-20] MEDS ORDERED: FENTANYL PF 100 MCG/2ML ONE (15:02)
[2018-08-20] MEDS: OMEPRAZOLE 20 MG CAPSULE.DR PO SCH (18:03)
[2018-08-20] MEDS: CITALOPRAM 20 MG TABLET PO SCH (18:04)
[2018-08-20] MEDS: IRON SUCROSE COMPLEX 100MG/5ML IV SCH (18:04)
[2018-08-20] MEDS: TAMSULOSIN 0.4 MG CAP.ER.24H PO SCH (20:33)
[2018-08-21 01:42] VITALS: BP 121/60
[2018-08-21 05:08] LABS: ANION GAP 6 mmol/L (5-15); CALCIUM 8.1 mg/dL (8.5-10.1); CHLORIDE 108 mmol/L (98-107)
[2018-08-21 05:09] LABS: CREATININE 0.88 mg/dL (0.55-1.02)
[2018-08-21 05:21] LABS: MEAN CORPUSCULAR HEMOGLOBIN 28.9 pg (27.0-34.8); MEAN CORPUSCULAR HGB CONC 32.8 g/dL (32.4-35.8); MEAN CORPUSCULAR VOLUME 88.3 fL (80-100); MEAN PLATELET VOLUME 7.9 fL (7.4-10.4); PLATELET COUNT 277 x10^3/uL (130-400); RED CELL DISTRIBUTION WIDTH 18.7 % (9.6-15.2)
[2018-08-21] MEDS: LEVOTHYROXINE 100 MCG TABLET PO SCH (05:45)
[2018-08-21 05:53] LABS: BASOPHILS # (AUTO) 0.03 x10^3/uL (0-0.1); BASOPHILS % (AUTO) 1 % (0-1); EOSINOPHILS # (AUTO) 0.34 x10^3/uL (0-0.4); EOSINOPHILS % (AUTO) 6 % (1-7); LYMPHOCYTES # (AUTO) 0.96 x10^3/uL (1-3.4); LYMPHOCYTES % (AUTO) 16 % (22-44); MONOCYTES # (AUTO) 0.55 x10^3/uL (0.2-0.8); MONOCYTES % (AUTO) 9 % (2-9); NEUTROPHILS # (AUTO) 4.04 x10^3/uL (1.8-6.8); NEUTROPHILS % (AUTO) 68 % (42-75)
[2018-08-21 05:56] LABS: MD SCAN
[2018-08-21] MEDS: CITALOPRAM 20 MG TABLET PO SCH (08:07)
[2018-08-21] MEDS: PRAMIPEXOLE 0.5MG TABLET PO SCH (08:07)
[2018-08-21] MEDS: OMEPRAZOLE 20 MG CAPSULE.DR PO SCH (08:07)
[2018-08-21] MEDS: IRON SUCROSE COMPLEX 100MG/5ML IV SCH (08:07)
[2018-08-21] MEDS: GABAPENTIN 400 MG CAPSULE PO SCH (08:07)
[2018-08-21] MEDS: PREGABALIN 150 MG CAPSULE PO SCH (08:07)
[2018-08-21] MEDS: HYDROCORTISONE 25 MG SUPP PR SCH (09:00)
[2018-08-21 09:23] VITALS: BP 125/69
== END 2018-08-21 14:10 | disposition home or self-care (01) | DRG 347 ==
LOC: ED 14:30 → EDIP 15:41 → 4WST 19:02
PROVIDERS: ADMIT Internal Medicine; ATTEND Internal Medicine
PROC: 30233N1 Transfusion of Nonautologous Red Blood Cells into Peripheral Vein, Percutaneous Approach (ICD-10-PCS; principal; 2018-08-19)
PROC: 06LY4CC Occlusion of Hemorrhoidal Plexus with Extraluminal Device, Percutaneous Endoscopic Approach (ICD-10-PCS; 2018-08-20)
PROC: 5A09357 Assistance with Respiratory Ventilation, Less than 24 Consecutive Hours, Continuous Positive Airway Pressure (ICD-10-PCS; 2018-08-21)
DX: K64.8 Other hemorrhoids (principal); N17.0 Acute kidney failure with tubular necrosis; D62 Acute posthemorrhagic anemia; J96.10 Chronic respiratory failure, unspecified whether with hypoxia or hypercapnia; Z68.41 Body mass index [BMI] 40.0-44.9, adult; I42.2 Other hypertrophic cardiomyopathy; J98.11 Atelectasis; Z88.8 Allergy status to other drugs, medicaments and biological substances; E03.9 Hypothyroidism, unspecified; Z66 Do not resuscitate; E66.01 Morbid (severe) obesity due to excess calories; E88.09 Other disorders of plasma-protein metabolism, not elsewhere classified; G47.33 Obstructive sleep apnea (adult) (pediatric); I11.9 Hypertensive heart disease without heart failure; K57.30 Diverticulosis of large intestine without perforation or abscess without bleeding; K64.4 Residual hemorrhoidal skin tags; Z78.0 Asymptomatic menopausal state; Z82.3 Family history of stroke; Z86.010 Personal history of colon polyps; Z90.710 Acquired absence of both cervix and uterus; Z99.81 Dependence on supplemental oxygen; Z90.49 Acquired absence of other specified parts of digestive tract
CPT/HCPCS: 36415; 36430; 71045; 80048; 80053; 81001; 85014; 85018; 85025; 85610; 85730; 86850; 86900; 86923; 87086; 93005; 94660; 99152; 99153; 99291; G0378; J1756; J2250; J3010; J7030; P9016

== ENCOUNTER 2018-08-27 13:52 | Inpatient (IN) | payer MEDICARE ==
[~2018-08-27] VITALS: Ht 177.8 cm; Wt 141.8 kg
[2018-08-27] VITALS (9 sets, daily range): BP systolic 92–132; BP diastolic 40–75
[2018-08-27] MEDS ORDERED: SODIUM CHLORIDE FLUSH 10ML SYR IVF ONE (14:30)
--- NOTE | 2018-08-27 14:30 | NUR ---
LATE ENTRY FOR 1430. FIRST CONTACT WITH PT. PT C/O RECTAL BLEEDING AND PAIN. PT STATES THAT "[facility] SENT ME HERE DUE TO LOW H&H." PT DENIES ABD PAIN/FEVER/N/V/D AT THIS TIME. PT AOX4. RESPS EVEN AND UNLABORED. ALL MONITORS IN PLACE. CALL LIGHT WITHIN REACH.
[2018-08-27 14:51] LABS: INTERNATIONAL NORMALIZED RATIO 1.09 (0.93-1.1); PROTHROMBIN TIME 11.5 Seconds (9.6-11.5)
[2018-08-27 14:54] LABS: ALANINE AMINOTRANSFERASE 14 U/L (12-78); ALBUMIN 2.9 g/dL (3.4-5.0); ANION GAP 6 mmol/L (5-15); CALCIUM 8.3 mg/dL (8.5-10.1); CHLORIDE 107 mmol/L (98-107); CREATININE 1.06 mg/dL (0.55-1.02); MEAN CORPUSCULAR HEMOGLOBIN 26.7 pg (27.0-34.8); MEAN CORPUSCULAR VOLUME 86.1 fL (80-100); MEAN PLATELET VOLUME 7.4 fL (7.4-10.4); PLATELET COUNT 261 x10^3/uL (130-400); RED BLOOD COUNT 1.99 x10^6/uL (3.82-5.3); RED CELL DISTRIBUTION WIDTH 18.7 % (9.6-15.2)
[2018-08-27 14:56] LABS: ALKALINE PHOSPHATASE 48 U/L (45-117); BILIRUBIN,TOTAL 0.4 mg/dL (0.2-1.0)
--- NOTE | 2018-08-27 14:58 | NUR ---
LAB CALLED ABOUT PT'S H&H. PT'S HGB 5.3/HCT17.2
[2018-08-27] MEDS ORDERED: PREG150C PO (15:09)
[2018-08-27] MEDS ORDERED: VITA1CAP7 PO (15:11)
[2018-08-27] MEDS ORDERED: RUTI500T PO (15:12)
--- NOTE | 2018-08-27 15:13 | NUR ---
HENRY ELLISON NOTIFIED CRITICAL HEMOGLOBIN 5.2/HCT 17.2 Addendum: 08/27/18 at 1515 by BENNETT HENRY ELLISON NOTIFIED CRITICAL HEMOGLOBIN 5.2/HCT 17.2 . NOTIFIED CURRENT BP 90/43, HR 80'S
[2018-08-27 15:32] LABS: BASOPHILS # (AUTO) 0.04 x10^3/uL (0-0.1); BASOPHILS % (AUTO) 1 % (0-1); EOSINOPHILS # (AUTO) 0.17 x10^3/uL (0-0.4); EOSINOPHILS % (AUTO) 2 % (1-7); LYMPHOCYTES % (AUTO) 16 % (22-44); MD SCAN; MONOCYTES # (AUTO) 0.66 x10^3/uL (0.2-0.8); MONOCYTES % (AUTO) 9 % (2-9); NEUTROPHILS % (AUTO) 72 % (42-75)
--- NOTE | 2018-08-27 15:38 | NUR ---
SBAR REPORT CALLED TO CATALINA BENITES. PRBCS ARRIVED.
--- NOTE | 2018-08-27 15:45 | NUR ---
blood consent form signed by HENRY Smith and pt.
--- NOTE | 2018-08-27 15:59 | NUR ---
BLOOD TRANSFUSION INITIATED AT 100ML/HR. LUNG SOUNDS CLEAR. PT AOX4. RESPS EVEN AND UNLABORED. 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 PIV SITE CDI, NO SWELLING AND REDNESS. PT TOLERATING WELL. PT DENIES S/S AT THIS TIME.
--- NOTE | 2018-08-27 16:01 | NUR ---
hospitalist Nikky FERRER at bedside to assess pt.
--- NOTE | 2018-08-27 16:29 | NUR ---
PT A&O, RESPS EVEN AND UNLABORED. 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 PIV SITE INFUSING BLOOD CDI WITH NO ERYTHEMA OR EDEMA. PT DENIES ANY SYMPTOMS. LUNG SOUNDS REMAIN CLEAR. VSS WITH PT ON BASELINE OXYGEN OF 2L/MIN. PT TRANSPORTED TO 378 AT THIS TIME, BLOOD INFUSION RATE INCREASED TO 150ML/HR PT IS TOLERATING TRANSFUSION WELL. PT'S WALLET SENT HOME WITH FAMILY, PT TRANSPORTED TO 378 WITH PURSE AND CELL PHONE. PT DECLINES PLACING ITEMS IN SAFEKEEPING AT THIS TIME.
[2018-08-27] MEDS ORDERED: hydrALAzine 20 MG/ML, 1ML IVPush PRN (16:30)
[2018-08-27] MEDS ORDERED: ACETAMINOPHEN 325 MG TABLET PO PRN (16:30)
[2018-08-27] MEDS ORDERED: PANTOPRAZOLE 80 MG in SODIUM CHLORIDE 0.9% 50 ML IV ONE (16:30)
[2018-08-27] MEDS ORDERED: ONDANSETRON 2MG/ML, 2ML IVPush PRN (16:30)
[2018-08-27] MEDS: SODIUM CHLORIDE 0.9% 1,000 ML IV SCH (17:30)
[2018-08-27] MEDS: PANTOPRAZOLE 80 MG in SODIUM CHLORIDE 0.9% 100 ML IV SCH (17:49)
[2018-08-27] MEDS: GABAPENTIN 400 MG CAPSULE PO SCH (22:03)
[2018-08-27] MEDS: TAMSULOSIN 0.4 MG CAP.ER.24H PO SCH (22:03)
[2018-08-27] MEDS: PREGABALIN 150 MG CAPSULE PO SCH (22:03)
[2018-08-27] MEDS: PRAMIPEXOLE 0.5MG TABLET PO SCH (22:03)
[2018-08-28 01:24] VITALS: BP 111/69
[2018-08-28] MEDS: PANTOPRAZOLE 80 MG in SODIUM CHLORIDE 0.9% 100 ML IV SCH ×3 (02:30→22:30)
[2018-08-28 03:02] LABS: ALANINE AMINOTRANSFERASE 15 U/L (12-78); ALBUMIN 2.6 g/dL (3.4-5.0); ANION GAP 3 mmol/L (5-15); CHLORIDE 108 mmol/L (98-107)
[2018-08-28 03:05] LABS: ALKALINE PHOSPHATASE 44 U/L (45-117); BILIRUBIN,TOTAL 0.9 mg/dL (0.2-1.0); CREATININE 0.95 mg/dL (0.55-1.02); TOTAL PROTEIN 5.7 g/dL (6.4-8.2)
[2018-08-28] MEDS: LEVOTHYROXINE 100 MCG TABLET PO SCH (05:39)
[2018-08-28 07:38] VITALS: BP 133/74
[2018-08-28] MEDS ORDERED: SILVER NITRATE STICK TP ONE (07:59)
[2018-08-28] MEDS ORDERED: FENTANYL PF 100 MCG/2ML ONE ×4 (08:24→15:00)
[2018-08-28] MEDS ORDERED: MIDAZOLAM 1 MG/ML, 5ML ONE (08:24)
[2018-08-28 08:30] LABS: MEAN CORPUSCULAR HEMOGLOBIN 28.2 pg (27.0-34.8); MEAN CORPUSCULAR HGB CONC 32.2 g/dL (32.4-35.8); MEAN CORPUSCULAR VOLUME 87.3 fL (80-100); MEAN PLATELET VOLUME 7.7 fL (7.4-10.4); PLATELET COUNT 264 x10^3/uL (130-400); RED BLOOD COUNT 2.36 x10^6/uL (3.82-5.3); RED CELL DISTRIBUTION WIDTH 17.6 % (9.6-15.2)
[2018-08-28 08:53] LABS: BASOPHILS # (AUTO) 0.03 x10^3/uL (0-0.1); BASOPHILS % (AUTO) 1 % (0-1); EOSINOPHILS # (AUTO) 0.19 x10^3/uL (0-0.4); EOSINOPHILS % (AUTO) 4 % (1-7); LYMPHOCYTES # (AUTO) 1.14 x10^3/uL (1-3.4); LYMPHOCYTES % (AUTO) 21 % (22-44); MD MORPH REVIEW ONLY; MONOCYTES # (AUTO) 0.51 x10^3/uL (0.2-0.8); MONOCYTES % (AUTO) 9 % (2-9); NEUTROPHILS # (AUTO) 3.65 x10^3/uL (1.8-6.8); NEUTROPHILS % (AUTO) 66 % (42-75)
[2018-08-28 09:10] LABS: <PLATELET ESTIMATE> ADEQUATE; <PLT MORPHOLOGY> NORMAL PLT MORPH; ANISOCYTOSIS 1+; HYPOCHROMIA 1+; MICROCYTOSIS 1+; POLYCHROMASIA 1+
[2018-08-28] MEDS ORDERED: PRAMIPEXOLE 0.25MG TABLET ONE (09:51)
[2018-08-28] MEDS: CITALOPRAM 20 MG TABLET PO SCH (09:54)
[2018-08-28] MEDS: PREGABALIN 150 MG CAPSULE PO SCH ×2 (09:54→21:57)
[2018-08-28] MEDS: GABAPENTIN 400 MG CAPSULE PO SCH ×2 (09:55→21:57)
[2018-08-28] MEDS: PRAMIPEXOLE 0.5MG TABLET PO SCH ×2 (09:56→21:57)
[2018-08-28 11:00] VITALS: BP 125/67
[2018-08-28 11:31] VITALS: BP 110/51
[2018-08-28] MEDS ORDERED: BUPIVACAINE/PF-EPI 0.5% 1:200K ONE (12:02)
[2018-08-28] MEDS: SODIUM CHLORIDE 0.9% 1,000 ML IV SCH (12:21)
[2018-08-28] MEDS ORDERED: MIDAZOLAM 1 MG/ML, 2ML ONE (12:50)
[2018-08-28] MEDS ORDERED: METOCLOPRAMIDE 5 MG/ML, 2ML IV PRN (13:00)
[2018-08-28] MEDS ORDERED: OXYcodone 5 MG/5 ML ORAL.SOL UDC PO PRN (13:00)
[2018-08-28] MEDS ORDERED: EPHEDRINE 50 MG/ML, 1ML IM PRN (13:00)
[2018-08-28] MEDS ORDERED: ACETAMINOPHEN 325 MG TABLET PO PRN (13:00)
[2018-08-28] MEDS ORDERED: LORazepam 2 MG/ML, 1ML IVPush PRN (13:00)
[2018-08-28] MEDS ORDERED: FENTANYL PF 100 MCG/2ML IV PRN (13:00)
[2018-08-28] MEDS ORDERED: MEPERIDINE/PF 25MG/0.5ML IVPush PRN (13:00)
[2018-08-28] MEDS ORDERED: GLYCOPYRROLATE 0.2MG/1ML, 5ML ONE (13:19)
[2018-08-28] MEDS ORDERED: NEOSTIGMINE 1 MG/ML, 10ML ONE (13:19)
[2018-08-28] MEDS ORDERED: ONDANSETRON 2MG/ML, 2ML ONE (13:19)
[2018-08-28] MEDS ORDERED: PROPOFOL 10 MG/ML, 20ML ONE (13:19)
[2018-08-28] MEDS ORDERED: CEFOTETAN 1 GM ONE (13:19)
[2018-08-28] MEDS ORDERED: SUCCINYLCHOLINE 20 MG/ML, 10ML ONE (13:19)
[2018-08-28] MEDS ORDERED: ROCURONIUM 10MG/ML,5ML ONE (13:19)
[2018-08-28] MEDS ORDERED: SILVER SULF. CRM 1% , 25GM ONE (14:01)
[2018-08-28] MEDS ORDERED: LIDOCAINE-MPF 2% ,5ML ONE (14:01)
[2018-08-28] MEDS ORDERED: LIDOCAINE JELLY 2%, 30GM ONE (14:01)
[2018-08-28] MEDS ORDERED: OXYcodone 5 MG/5 ML ORAL.SOL UDC ONE (14:34)
[2018-08-28] MEDS ORDERED: HYDROmorphone 2 MG/ML, 1ML ONE (14:34)
[2018-08-28] MEDS: HYDROmorphone 2 MG/ML, 1ML IVPush PRN ×4 (14:35→15:10)
[2018-08-28 19:08] VITALS: BP 101/71
[2018-08-28] MEDS: OXYcodone/APAP 5/325MG TABLET PO PRN (21:49)
[2018-08-28] MEDS: TAMSULOSIN 0.4 MG CAP.ER.24H PO SCH (21:57)
[2018-08-29] MEDS: OXYcodone/APAP 5/325MG TABLET PO PRN ×4 (01:33→21:06)
[2018-08-29 02:15] VITALS: BP 107/63
[2018-08-29] MEDS: LEVOTHYROXINE 100 MCG TABLET PO SCH (05:36)
[2018-08-29 08:39] VITALS: BP 91/58
[2018-08-29] MEDS: PRAMIPEXOLE 0.5MG TABLET PO SCH ×2 (08:57→20:57)
[2018-08-29] MEDS: GABAPENTIN 400 MG CAPSULE PO SCH ×2 (08:57→20:57)
[2018-08-29] MEDS: CITALOPRAM 20 MG TABLET PO SCH (08:58)
[2018-08-29] MEDS: PREGABALIN 150 MG CAPSULE PO SCH ×2 (08:58→20:57)
[2018-08-29] MEDS: SODIUM CHLORIDE 0.9% 1,000 ML IV SCH ×2 (09:01→21:01)
[2018-08-29 15:55] VITALS: BP 95/59
[2018-08-29 18:33] VITALS: BP 99/66
[2018-08-29] MEDS: TAMSULOSIN 0.4 MG CAP.ER.24H PO SCH (20:57)
[2018-08-30 00:31] VITALS: BP 100/54
[2018-08-30 05:12] LABS: MEAN CORPUSCULAR HGB CONC 32.8 g/dL (32.4-35.8); MEAN CORPUSCULAR VOLUME 88.5 fL (80-100); PLATELET COUNT 233 x10^3/uL (130-400); RED BLOOD COUNT 2.48 x10^6/uL (3.82-5.3); RED CELL DISTRIBUTION WIDTH 18.1 % (9.6-15.2)
[2018-08-30 05:19] LABS: ALBUMIN 2.9 g/dL (3.4-5.0); ANION GAP 5 mmol/L (5-15); CHLORIDE 104 mmol/L (98-107)
[2018-08-30 05:24] LABS: ALANINE AMINOTRANSFERASE 21 U/L (12-78); ALKALINE PHOSPHATASE 47 U/L (45-117); BILIRUBIN,TOTAL 0.7 mg/dL (0.2-1.0); CREATININE 1.06 mg/dL (0.55-1.02); TOTAL PROTEIN 6.4 g/dL (6.4-8.2)
[2018-08-30] MEDS: LEVOTHYROXINE 100 MCG TABLET PO SCH (06:03)
[2018-08-30 06:04] LABS: BASOPHILS # (AUTO) 0.06 x10^3/uL (0-0.1); BASOPHILS % (AUTO) 1 % (0-1); EOSINOPHILS # (AUTO) 0.13 x10^3/uL (0-0.4); EOSINOPHILS % (AUTO) 1 % (1-7); LYMPHOCYTES # (AUTO) 1.53 x10^3/uL (1-3.4); LYMPHOCYTES % (AUTO) 12 % (22-44); MONOCYTES # (AUTO) 1.08 x10^3/uL (0.2-0.8); MONOCYTES % (AUTO) 9 % (2-9); NEUTROPHILS # (AUTO) 9.71 x10^3/uL (1.8-6.8); NEUTROPHILS % (AUTO) 78 % (42-75)
[2018-08-30 06:05] LABS: MD SCAN
[2018-08-30 08:19] VITALS: BP 107/56
[2018-08-30] MEDS: CITALOPRAM 20 MG TABLET PO SCH (08:48)
[2018-08-30] MEDS: PRAMIPEXOLE 0.5MG TABLET PO SCH ×2 (08:48→21:10)
[2018-08-30] MEDS: OXYcodone/APAP 5/325MG TABLET PO PRN ×2 (08:49→21:10)
[2018-08-30] MEDS: GABAPENTIN 400 MG CAPSULE PO SCH ×2 (08:49→21:10)
[2018-08-30] MEDS: PREGABALIN 150 MG CAPSULE PO SCH ×2 (08:49→21:10)
[2018-08-30] MEDS ORDERED: MAGNESIUM HYDROXIDE 8%, 30ML UDC PO PRN (10:00)
[2018-08-30] MEDS: DOCUSATE 100 MG CAPSULE PO SCH ×2 (10:22→21:10)
[2018-08-30 14:32] VITALS: BP 152/75
[2018-08-30] MEDS: SODIUM CHLORIDE 0.9% 1,000 ML IV SCH (17:19)
[2018-08-30 18:41] VITALS: BP 107/58
[2018-08-30] MEDS: TAMSULOSIN 0.4 MG CAP.ER.24H PO SCH (21:10)
[2018-08-31] VITALS (8 sets, daily range): BP systolic 100–129; BP diastolic 62–73
[2018-08-31] MEDS: SODIUM CHLORIDE 0.9% 1,000 ML IV SCH ×4 (00:19→20:42)
[2018-08-31] MEDS: LEVOTHYROXINE 100 MCG TABLET PO SCH (05:02)
[2018-08-31 05:14] LABS: MEAN CORPUSCULAR HEMOGLOBIN 28.4 pg (27.0-34.8); MEAN CORPUSCULAR HGB CONC 31.9 g/dL (32.4-35.8); PLATELET COUNT 199 x10^3/uL (130-400); RED BLOOD COUNT 2.32 x10^6/uL (3.82-5.3)
[2018-08-31 05:59] LABS: BASOPHILS # (AUTO) 0.02 x10^3/uL (0-0.1); BASOPHILS % (AUTO) 0 % (0-1); EOSINOPHILS # (AUTO) 0.22 x10^3/uL (0-0.4); EOSINOPHILS % (AUTO) 3 % (1-7); LYMPHOCYTES # (AUTO) 1.17 x10^3/uL (1-3.4); LYMPHOCYTES % (AUTO) 14 % (22-44); MD SCAN; MONOCYTES % (AUTO) 10 % (2-9); NEUTROPHILS # (AUTO) 6.05 x10^3/uL (1.8-6.8); NEUTROPHILS % (AUTO) 73 % (42-75)
[2018-08-31] MEDS: OXYcodone/APAP 5/325MG TABLET PO PRN ×4 (08:16→23:26)
[2018-08-31] MEDS: MAGNESIUM HYDROXIDE 8%, 30ML UDC PO SCH (08:17)
[2018-08-31] MEDS: DOCUSATE 100 MG CAPSULE PO SCH ×2 (08:17→20:42)
[2018-08-31] MEDS: GABAPENTIN 400 MG CAPSULE PO SCH ×2 (08:17→20:42)
[2018-08-31] MEDS: PRAMIPEXOLE 0.5MG TABLET PO SCH ×2 (08:17→20:42)
[2018-08-31] MEDS: CITALOPRAM 20 MG TABLET PO SCH (08:17)
[2018-08-31] MEDS: PREGABALIN 150 MG CAPSULE PO SCH ×2 (08:17→20:42)
[2018-08-31] MEDS: TAMSULOSIN 0.4 MG CAP.ER.24H PO SCH (20:42)
[2018-09-01 03:38] VITALS: BP 131/69
[2018-09-01] MEDS: LEVOTHYROXINE 100 MCG TABLET PO SCH (04:36)
[2018-09-01 04:52] LABS: BASOPHILS # (AUTO) 0.02 x10^3/uL (0-0.1); BASOPHILS % (AUTO) 0 % (0-1); EOSINOPHILS # (AUTO) 0.27 x10^3/uL (0-0.4); EOSINOPHILS % (AUTO) 4 % (1-7); LYMPHOCYTES % (AUTO) 14 % (22-44); MD NO; MEAN CORPUSCULAR HEMOGLOBIN 28.4 pg (27.0-34.8); MEAN CORPUSCULAR HGB CONC 32.1 g/dL (32.4-35.8); MEAN CORPUSCULAR VOLUME 88.6 fL (80-100); MEAN PLATELET VOLUME 8.3 fL (7.4-10.4); MONOCYTES # (AUTO) 0.48 x10^3/uL (0.2-0.8); MONOCYTES % (AUTO) 7 % (2-9); NEUTROPHILS # (AUTO) 4.89 x10^3/uL (1.8-6.8); NEUTROPHILS % (AUTO) 75 % (42-75); PLATELET COUNT 208 x10^3/uL (130-400); RED CELL DISTRIBUTION WIDTH 17.8 % (9.6-15.2)
[2018-09-01 05:01] LABS: ALANINE AMINOTRANSFERASE 16 U/L (12-78); ALBUMIN 2.5 g/dL (3.4-5.0); ANION GAP 0 mmol/L (5-15); CALCIUM 8.2 mg/dL (8.5-10.1); CHLORIDE 110 mmol/L (98-107); CREATININE 0.75 mg/dL (0.55-1.02)
[2018-09-01 05:03] LABS: ALKALINE PHOSPHATASE 45 U/L (45-117); BILIRUBIN,TOTAL 0.5 mg/dL (0.2-1.0); TOTAL PROTEIN 5.9 g/dL (6.4-8.2)
[2018-09-01 07:30] VITALS: BP 147/84
[2018-09-01] MEDS: MAGNESIUM HYDROXIDE 8%, 30ML UDC PO SCH (09:02)
[2018-09-01] MEDS: OXYcodone/APAP 5/325MG TABLET PO PRN (09:02)
[2018-09-01] MEDS: PRAMIPEXOLE 0.5MG TABLET PO SCH (09:02)
[2018-09-01] MEDS: GABAPENTIN 400 MG CAPSULE PO SCH (09:03)
[2018-09-01] MEDS: PREGABALIN 150 MG CAPSULE PO SCH (09:03)
[2018-09-01] MEDS: CITALOPRAM 20 MG TABLET PO SCH (09:03)
[2018-09-01] MEDS: DOCUSATE 100 MG CAPSULE PO SCH (09:03)
[2018-09-01 12:30] LABS: BASOPHILS # (AUTO) 0.02 x10^3/uL (0-0.1); BASOPHILS % (AUTO) 0 % (0-1); EOSINOPHILS # (AUTO) 0.19 x10^3/uL (0-0.4); EOSINOPHILS % (AUTO) 3 % (1-7); LYMPHOCYTES # (AUTO) 0.65 x10^3/uL (1-3.4); LYMPHOCYTES % (AUTO) 9 % (22-44); MD NO; MEAN CORPUSCULAR HEMOGLOBIN 27.8 pg (27.0-34.8); MEAN CORPUSCULAR HGB CONC 31.7 g/dL (32.4-35.8); MEAN CORPUSCULAR VOLUME 87.6 fL (80-100); MEAN PLATELET VOLUME 8.1 fL (7.4-10.4); MONOCYTES # (AUTO) 0.48 x10^3/uL (0.2-0.8); MONOCYTES % (AUTO) 6 % (2-9); NEUTROPHILS # (AUTO) 6.23 x10^3/uL (1.8-6.8); NEUTROPHILS % (AUTO) 82 % (42-75); PLATELET COUNT 226 x10^3/uL (130-400); RED BLOOD COUNT 2.77 x10^6/uL (3.82-5.3); RED CELL DISTRIBUTION WIDTH 17.7 % (9.6-15.2)
[2018-09-01 14:00] VITALS: BP 106/68
[2018-09-01] MEDS ORDERED: SODIUM CHLORIDE 0.9% 1,000 ML IV SCH (16:21)
== END 2018-09-01 20:19 | disposition home health service (06) | DRG 347 ==
LOC: ED 15:06 → EDIP 15:07 → ED 15:45 → 3NE 16:31 → 3NW 22:56
PROVIDERS: ADMIT Hospitalist; ATTEND Hospitalist
PROC: 30233N1 Transfusion of Nonautologous Red Blood Cells into Peripheral Vein, Percutaneous Approach (ICD-10-PCS; 2018-08-27)
PROC: 06BY0ZC Excision of Hemorrhoidal Plexus, Open Approach (ICD-10-PCS; 2018-08-28)
PROC: 30233N1 Transfusion of Nonautologous Red Blood Cells into Peripheral Vein, Percutaneous Approach (ICD-10-PCS; 2018-08-28)
PROC: 0DJD8ZZ Inspection of Lower Intestinal Tract, Via Natural or Artificial Opening Endoscopic (ICD-10-PCS; principal; 2018-08-28 08:00)
PROC: 5A09357 Assistance with Respiratory Ventilation, Less than 24 Consecutive Hours, Continuous Positive Airway Pressure (ICD-10-PCS; 2018-08-29)
PROC: 30233N1 Transfusion of Nonautologous Red Blood Cells into Peripheral Vein, Percutaneous Approach (ICD-10-PCS; 2018-08-31)
PROC: 5A09357 Assistance with Respiratory Ventilation, Less than 24 Consecutive Hours, Continuous Positive Airway Pressure (ICD-10-PCS; 2018-09-01)
DX: K64.8 Other hemorrhoids (principal); N17.0 Acute kidney failure with tubular necrosis; E44.1 Mild protein-calorie malnutrition; D62 Acute posthemorrhagic anemia; I42.2 Other hypertrophic cardiomyopathy; J96.11 Chronic respiratory failure with hypoxia; Z68.41 Body mass index [BMI] 40.0-44.9, adult; E03.9 Hypothyroidism, unspecified; G47.33 Obstructive sleep apnea (adult) (pediatric); R73.9 Hyperglycemia, unspecified; M54.9 Dorsalgia, unspecified; R33.9 Retention of urine, unspecified; E66.01 Morbid (severe) obesity due to excess calories; I10 Essential (primary) hypertension; G62.9 Polyneuropathy, unspecified; K31.819 Angiodysplasia of stomach and duodenum without bleeding; K44.9 Diaphragmatic hernia without obstruction or gangrene; K57.30 Diverticulosis of large intestine without perforation or abscess without bleeding; K64.4 Residual hemorrhoidal skin tags; Z90.710 Acquired absence of both cervix and uterus; Z90.49 Acquired absence of other specified parts of digestive tract; Z88.8 Allergy status to other drugs, medicaments and biological substances; Z79.899 Other long term (current) drug therapy; Z86.010 Personal history of colon polyps; Z87.891 Personal history of nicotine dependence
CPT/HCPCS: 36415; 80053; 82728; 83540; 83550; 84443; 85014; 85018; 85025; 85610; 85730; 86850; 86900; 86923; 88304; 94660; 99152; 99153; 99285; G0378; J1170; J2250; J2405; J2704; J2710; J3010; J3490; C9113; J0330; J7030; P9016

== ENCOUNTER 2019-08-08 15:17 | Inpatient (IN) | payer MEDICARE ==
[~2019-08-08] VITALS: Ht 177.8 cm; Wt 144.5 kg
[~2019-08-08 15:17] MED LIST changes: -HYDR-3307 PO; +HYDR-36 PO; +RUTI500T PO; +VITA1CAP7 PO
--- NOTE | 2019-08-08 15:25 | NUR ---
pt biba from [facility] for gib, low h/h, low k+ and increased wbc. pt also states fatigue and syncopal/near syncopal episodes x4 days. +guaiac. hx gi bleeds. pt arrived with 1 unit prbc infusing. pt connected to all monitors. all vss on 3lnc. piv x3 established line out worker and 80mg protonix, 3.375g piperacillin, 10mEq KCl and [address] Faye to for assessment. awaiting orders.
--- NOTE | 2019-08-08 15:50 | NUR ---
BLOOD COMPLETE AT THIS TIME. VSS. NO REACTIONS NOTED.
[2019-08-08] MEDS ORDERED: SODIUM CHLORIDE FLUSH 10ML SYR IVF ONE (16:00)
[2019-08-08 16:46] LABS: MEAN CORPUSCULAR HEMOGLOBIN 31.5 pg (27.0-34.8); MEAN CORPUSCULAR HGB CONC 33.4 g/dL (32.4-35.8); MEAN CORPUSCULAR VOLUME 94.2 fL (80-100); MEAN PLATELET VOLUME 9.4 fL (7.4-10.4); PLATELET COUNT 171 x10^3/uL (130-400); RED BLOOD COUNT 2.62 x10^6/uL (3.82-5.3); RED CELL DISTRIBUTION WIDTH 13.5 % (9.6-15.2)
[2019-08-08 16:47] LABS: INTERNATIONAL NORMALIZED RATIO 1.15 (0.93-1.1)
--- NOTE | 2019-08-08 16:52 | NUR ---
task rn: RECEIVED BEDSIDE REPORT FROM CATALINA DUGAN.
[2019-08-08 16:55] LABS: ALKALINE PHOSPHATASE 59 U/L (45-117); BILIRUBIN,TOTAL 0.9 mg/dL (0.2-1.0); TOTAL PROTEIN 7.1 g/dL (6.4-8.2)
[2019-08-08 17:00] LABS: CHLORIDE 79 mmol/L (98-107)
[2019-08-08 17:22] LABS: ANION GAP 10 mmol/L (5-15); CALCIUM 8.9 mg/dL (8.5-10.1)
[2019-08-08 17:23] LABS: CREATININE 1.59 mg/dL (0.55-1.02)
[2019-08-08 17:25] LABS: ALANINE AMINOTRANSFERASE 20 U/L (12-78); ALBUMIN 3.2 g/dL (3.4-5.0)
[2019-08-08] MEDS ORDERED: SODIUM CHLORIDE FLUSH 10ML SYR IVF PRN (17:30)
--- NOTE | 2019-08-08 17:30 | NUR ---
TASK RN; SPOKE WITH LAB. BUN WAS SPUN TWICE. FIRST RESULT WAS 99, SECOND WAS 101. LAB WANTED TO LET ME KNOW THAT 99 IS IN THE COMPUTER. RELAYED TO CATALINA DUGAN AND ED.
--- NOTE | 2019-08-08 17:32 | NUR ---
TASK RN: BEDSIDE REPORT TO CATALINA DUGAN.
[2019-08-08 17:57] LABS: MD YES
[2019-08-08 17:59] LABS: BANDS%(MANUAL) 10 % (0-7); LYMPH#(MANUAL) 1.68 x10^3/uL (1-3.4); LYMPHS% (MANUAL) 6 % (22-44); METAMYELOCYTES# (MANUAL) 0.28 x10^3/uL (0-0); METAMYELOCYTES% (MANUAL) 1 % (0-1); MONOS#(MANUAL) 1.12 x10^3/uL (0.3-2.7); MONOS% (MANUAL) 4 % (2-9); SEG#(MANUAL) 22.12 x10^3/uL (1.8-6.8); SEGS% (MANUAL) 79 % (42-75)
[2019-08-08 18:00] LABS: <PLATELET ESTIMATE> ADEQUATE; POLYCHROMASIA 1+
[2019-08-08 18:01] LABS: LARGE PLATELETS 1+
--- NOTE | 2019-08-08 19:02 | NUR ---
Note undone in EDM - 08/08/19 at 1904 by [email or web address] PT TO ED FOR PALPS X A FEW MONTHS. PT STATES SEES DR. LAI AND HAS HAD HOLTER PLACED, RESULTS AREN'T BACK YET. PT STATES LIGHTHEADEDNESS DURING EPISODES, BUT DENIES N/V/SYNCOPE/CP OR PRESSURE/SOB. PT CONNECTED TO ALL MONITORS. VSS. NO ECTOPY NOTED ON MONITOR. XR AND EKG COMPLETE. LABS DRAWN. AWAITING RESULTS. DR. MILLIGAN TO FOR ASSESSMENT AT THIS TIME. AWAITING FURTHER ORDERS.
--- NOTE | 2019-08-08 19:26 | NUR ---
REPORT TO CATALINA GAN. PT READY FRO TRANSPORT.
[2019-08-08] MEDS ORDERED: DOCUSATE 100 MG CAPSULE PO PRN (19:30)
[2019-08-08] MEDS ORDERED: ACETAMINOPHEN 325 MG TABLET PO PRN (19:30)
[2019-08-08] MEDS ORDERED: LIDODERM 5% PATCH TD PRN (19:30)
[2019-08-08] MEDS ORDERED: ONDANSETRON ODT 4 MG PO PRN (19:30)
[2019-08-08 19:55] LABS: TROPONIN I 0.193 ng/mL (0.000-0.045)
[2019-08-08] MEDS: NS + 40MEQ KCL 1,000 ML IV SCH (20:46)
[2019-08-08 20:58] VITALS: BP 95/62
[2019-08-08 20:59] LABS: HEMOGLOBIN A1C 5.7 % (4.2-6.3)
[2019-08-08] MEDS: PREGABALIN 150 MG CAPSULE PO SCH (23:20)
[2019-08-08] MEDS: PRAMIPEXOLE 0.5MG TABLET PO SCH (23:20)
[2019-08-08] MEDS ORDERED: PRAMIPEXOLE 0.5MG TABLET PO SCH (23:30)
[2019-08-09] VITALS (11 sets, daily range): BP systolic 85–106; BP diastolic 52–71
[2019-08-09 02:30] LABS: MEAN CORPUSCULAR HEMOGLOBIN 32.5 pg (27.0-34.8); MEAN CORPUSCULAR HGB CONC 33.9 g/dL (32.4-35.8); MEAN CORPUSCULAR VOLUME 95.6 fL (80-100); MEAN PLATELET VOLUME 9.5 fL (7.4-10.4); PLATELET COUNT 166 x10^3/uL (130-400); RED BLOOD COUNT 2.34 x10^6/uL (3.82-5.3); RED CELL DISTRIBUTION WIDTH 13.5 % (9.6-15.2)
[2019-08-09 02:39] LABS: % IRON SATURATION 21 % (20-55); ANION GAP 8 mmol/L (5-15); CALCIUM 8.2 mg/dL (8.5-10.1); CHLORIDE 82 mmol/L (98-107); CREATININE 1.41 mg/dL (0.55-1.02); IRON LEVEL 70 mcg/dL (50-170); T4 (THYROXINE) 8.6 mcg/dL (4.8-13.9); TOTAL IRON BINDING CAPACITY 336 mcg/dL (250-450)
[2019-08-09 02:44] LABS: TROPONIN I 0.129 ng/mL (0.000-0.045)
[2019-08-09 02:48] LABS: MD YES
[2019-08-09 02:58] LABS: <PLATELET ESTIMATE> ADEQUATE; <RBC MORPHOLOGY> NORMAL; BAND#(MANUAL) 1.76 x10^3/uL; BANDS%(MANUAL) 6 % (0-7); EOS#(MANUAL) 0.29 x10^3/uL (0.0-0.4); EOS% (MANUAL) 1 % (1-7); LYMPH#(MANUAL) 1.76 x10^3/uL (1-3.4); LYMPHS% (MANUAL) 6 % (22-44); METAMYELOCYTES# (MANUAL) 0.59 x10^3/uL (0-0); METAMYELOCYTES% (MANUAL) 2 % (0-1); MONOS#(MANUAL) 2.35 x10^3/uL (0.3-2.7); MONOS% (MANUAL) 8 % (2-9); MYELOCYTES# (MANUAL) 0.29 x10^3/uL (0-0); MYELOCYTES% (MANUAL) 1 % (0-0); SEG#(MANUAL) 22.34 x10^3/uL (1.8-6.8); SEGS% (MANUAL) 76 % (42-75)
[2019-08-09 02:59] LABS: <PLT MORPHOLOGY> NORMAL PLT MORPH
[2019-08-09] MEDS: LEVOTHYROXINE 100 MCG TABLET PO SCH (05:51)
[2019-08-09] MEDS ORDERED: POTASSIUM CHLORIDE 20 MEQ in SODIUM CHLORIDE 0.9% 250 ML IV ONE (07:30)
[2019-08-09] MEDS: GABAPENTIN 400 MG CAPSULE PO SCH ×2 (07:31→20:47)
[2019-08-09] MEDS: OMEPRAZOLE 20 MG CAPSULE.DR PO SCH (07:31)
[2019-08-09] MEDS: CITALOPRAM 20 MG TABLET PO SCH (07:31)
[2019-08-09] MEDS: PREGABALIN 150 MG CAPSULE PO SCH ×2 (07:31→20:47)
[2019-08-09] MEDS: PRAMIPEXOLE 0.5MG TABLET PO SCH ×2 (07:31→20:47)
[2019-08-09 07:41] LABS: MEAN CORPUSCULAR HEMOGLOBIN 31.9 pg (27.0-34.8); MEAN CORPUSCULAR HGB CONC 33.8 g/dL (32.4-35.8); MEAN CORPUSCULAR VOLUME 94.4 fL (80-100); MEAN PLATELET VOLUME 9.2 fL (7.4-10.4); PLATELET COUNT 169 x10^3/uL (130-400); RED BLOOD COUNT 2.31 x10^6/uL (3.82-5.3); RED CELL DISTRIBUTION WIDTH 13.2 % (9.6-15.2)
[2019-08-09] MEDS: NS + 40MEQ KCL 1,000 ML IV SCH (07:52)
[2019-08-09 08:04] LABS: ALBUMIN 3.1 g/dL (3.4-5.0); ANION GAP 7 mmol/L (5-15); CALCIUM 8.3 mg/dL (8.5-10.1); CHLORIDE 84 mmol/L (98-107); CREATININE 1.41 mg/dL (0.55-1.02)
[2019-08-09 08:22] LABS: MD YES
[2019-08-09 08:24] LABS: ANISOCYTOSIS 1+; BAND#(MANUAL) 0.51 x10^3/uL; BANDS%(MANUAL) 2 % (0-7); LYMPH#(MANUAL) 1.54 x10^3/uL (1-3.4); LYMPHS% (MANUAL) 6 % (22-44); METAMYELOCYTES# (MANUAL) 0.26 x10^3/uL (0-0); METAMYELOCYTES% (MANUAL) 1 % (0-1); MONOS#(MANUAL) 1.02 x10^3/uL (0.3-2.7); MONOS% (MANUAL) 4 % (2-9); POLYCHROMASIA 1+; SEG#(MANUAL) 22.27 x10^3/uL (1.8-6.8); SEGS% (MANUAL) 87 % (42-75)
[2019-08-09 08:25] LABS: <PLATELET ESTIMATE> ADEQUATE; LARGE PLATELETS 1+
[2019-08-09] MEDS ORDERED: PROPOFOL 10 MG/ML, 20ML ONE (16:01)
[2019-08-09] MEDS: TAMSULOSIN 0.4 MG CAP.ER.24H PO SCH (20:47)
[2019-08-09] MEDS ORDERED: TEMPLATE NON-FORMULARY MED. (Cranberry Extract** (Cran-Max**) 500 MG) PO SCH (21:00)
[2019-08-10 01:06] VITALS: BP 104/69
[2019-08-10] MEDS: NS + 40MEQ KCL 1,000 ML IV SCH (03:21)
[2019-08-10] MEDS: LEVOTHYROXINE 100 MCG TABLET PO SCH (05:35)
[2019-08-10 07:12] LABS: MEAN CORPUSCULAR HEMOGLOBIN 31.5 pg (27.0-34.8); MEAN CORPUSCULAR VOLUME 92.7 fL (80-100); MEAN PLATELET VOLUME 8.8 fL (7.4-10.4); PLATELET COUNT 170 x10^3/uL (130-400); RED BLOOD COUNT 2.55 x10^6/uL (3.82-5.3); RED CELL DISTRIBUTION WIDTH 13.3 % (9.6-15.2)
[2019-08-10 07:13] LABS: ALBUMIN 2.9 g/dL (3.4-5.0); ANION GAP 6 mmol/L (5-15); CALCIUM 8.3 mg/dL (8.5-10.1); CHLORIDE 90 mmol/L (98-107); CREATININE 0.95 mg/dL (0.55-1.02)
[2019-08-10 08:00] VITALS: BP 100/68
[2019-08-10] MEDS: PREGABALIN 150 MG CAPSULE PO SCH ×2 (08:31→20:12)
[2019-08-10] MEDS: OMEPRAZOLE 20 MG CAPSULE.DR PO SCH (08:31)
[2019-08-10] MEDS: GABAPENTIN 400 MG CAPSULE PO SCH ×2 (08:31→20:12)
[2019-08-10] MEDS: CITALOPRAM 20 MG TABLET PO SCH (08:31)
[2019-08-10] MEDS: PRAMIPEXOLE 0.5MG TABLET PO SCH ×2 (08:32→20:12)
[2019-08-10] MEDS ORDERED: BISACODYL 10 MG SUPP PR PRN (09:00)
[2019-08-10] MEDS ORDERED: POLYETHYLENE GLYCOL 17 GM PACKET PO ONE (09:00)
[2019-08-10 09:17] LABS: MD YES
[2019-08-10 09:18] LABS: <PLATELET ESTIMATE> ADEQUATE; ANISOCYTOSIS 1+; BAND#(MANUAL) 0.43 x10^3/uL; BANDS%(MANUAL) 2 % (0-7); EOS#(MANUAL) 0.21 x10^3/uL (0.0-0.4); EOS% (MANUAL) 1 % (1-7); LYMPH#(MANUAL) 1.28 x10^3/uL (1-3.4); LYMPHS% (MANUAL) 6 % (22-44); METAMYELOCYTES# (MANUAL) 0.43 x10^3/uL (0-0); METAMYELOCYTES% (MANUAL) 2 % (0-1); MONOS#(MANUAL) 2.34 x10^3/uL (0.3-2.7); MONOS% (MANUAL) 11 % (2-9); NRBC % (MANUAL) 2 % (0-1); POLYCHROMASIA 1+; SEG#(MANUAL) 16.61 x10^3/uL (1.8-6.8); SEGS% (MANUAL) 78 % (42-75)
[2019-08-10 09:19] LABS: LARGE PLATELETS 1+
[2019-08-10] MEDS ORDERED: CALCIUM GLUCONATE 4.6 MEQ in SODIUM CHLORIDE 0.9% 50 ML IV ONE (09:30)
[2019-08-10] MEDS ORDERED: POTASSIUM CHLORIDE 20 MEQ in SODIUM CHLORIDE 0.9% 250 ML IV ONE ×2 (09:30→17:00)
[2019-08-10] MEDS: MULTIVITS,STRESS FORMULA 1 TABLET PO SCH (10:37)
[2019-08-10] MEDS ORDERED: POTASSIUM PHOSPHATE 44 MEQ in SODIUM CHLORIDE 0.9% 500 ML IV ONE (12:00)
[2019-08-10 14:12] VITALS: BP 122/75
[2019-08-10] MEDS: CHOLECALCIFEROL 400 UNITS TABLET PO SCH (17:00)
[2019-08-10] MEDS: ASCORBIC ACID 500 MG TABLET PO SCH (17:00)
[2019-08-10] MEDS ORDERED: MAGNESIUM SULFATE PMX 2GM/50ML 50 ML IV ONE (17:00)
[2019-08-10] MEDS: TAMSULOSIN 0.4 MG CAP.ER.24H PO SCH (20:12)
[2019-08-10 20:22] VITALS: BP 103/68
[2019-08-10 20:47] VITALS: BP 109/70
[2019-08-11 01:44] VITALS: BP 109/6
[2019-08-11] MEDS: NS + 40MEQ KCL 1,000 ML IV SCH ×2 (03:00→15:14)
[2019-08-11] MEDS: LEVOTHYROXINE 100 MCG TABLET PO SCH (04:46)
[2019-08-11 05:52] LABS: CHLORIDE 95 mmol/L (98-107)
[2019-08-11 06:04] LABS: ALBUMIN 2.8 g/dL (3.4-5.0); ANION GAP 4 mmol/L (5-15); CALCIUM 8.4 mg/dL (8.5-10.1); CREATININE 0.88 mg/dL (0.55-1.02)
[2019-08-11 06:25] LABS: MD YES; MEAN CORPUSCULAR HEMOGLOBIN 31.6 pg (27.0-34.8); MEAN CORPUSCULAR HGB CONC 33.1 g/dL (32.4-35.8); MEAN CORPUSCULAR VOLUME 95.3 fL (80-100); MEAN PLATELET VOLUME 8.8 fL (7.4-10.4); PLATELET COUNT 180 x10^3/uL (130-400); RED BLOOD COUNT 2.26 x10^6/uL (3.82-5.3); RED CELL DISTRIBUTION WIDTH 14.4 % (9.6-15.2)
[2019-08-11 06:26] LABS: BAND#(MANUAL) 0.54 x10^3/uL; BANDS%(MANUAL) 3 % (0-7); EOS#(MANUAL) 0.18 x10^3/uL (0.0-0.4); EOS% (MANUAL) 1 % (1-7); LYMPH#(MANUAL) 1.25 x10^3/uL (1-3.4); LYMPHS% (MANUAL) 7 % (22-44); MONOS% (MANUAL) 5 % (2-9); SEG#(MANUAL) 15.04 x10^3/uL (1.8-6.8); SEGS% (MANUAL) 84 % (42-75)
[2019-08-11 06:27] LABS: <PLATELET ESTIMATE> ADEQUATE; <PLT MORPHOLOGY> NORMAL PLT MORPH; ANISOCYTOSIS 1+; POLYCHROMASIA 1+
[2019-08-11] MEDS: GABAPENTIN 400 MG CAPSULE PO SCH (07:43)
[2019-08-11] MEDS: PRAMIPEXOLE 0.5MG TABLET PO SCH (07:43)
[2019-08-11] MEDS: ASCORBIC ACID 500 MG TABLET PO SCH ×2 (07:43→17:00)
[2019-08-11] MEDS: MULTIVITS,STRESS FORMULA 1 TABLET PO SCH (07:43)
[2019-08-11] MEDS: PREGABALIN 150 MG CAPSULE PO SCH (07:43)
[2019-08-11] MEDS: OMEPRAZOLE 20 MG CAPSULE.DR PO SCH (07:43)
[2019-08-11 08:12] VITALS: BP 103/67
[2019-08-11] MEDS ORDERED: CITALOPRAM 20 MG TABLET PO SCH (09:00)
[2019-08-11] MEDS ORDERED: POLYETHYLENE GLYCOL 17 GM PACKET PO SCH (09:00)
[2019-08-11 13:03] VITALS: BP 102/68
[2019-08-11 14:58] LABS: MEAN CORPUSCULAR HEMOGLOBIN 31.1 pg (27.0-34.8); MEAN CORPUSCULAR HGB CONC 32.7 g/dL (32.4-35.8); MEAN PLATELET VOLUME 8.1 fL (7.4-10.4); PLATELET COUNT 188 x10^3/uL (130-400); RED BLOOD COUNT 2.28 x10^6/uL (3.82-5.3); RED CELL DISTRIBUTION WIDTH 14.5 % (9.6-15.2)
[2019-08-11 15:11] LABS: MD YES
[2019-08-11 15:14] LABS: BAND#(MANUAL) 0.72 x10^3/uL; BANDS%(MANUAL) 5 % (0-7); LYMPH#(MANUAL) 0.57 x10^3/uL (1-3.4); LYMPHS% (MANUAL) 4 % (22-44); METAMYELOCYTES# (MANUAL) 0.14 x10^3/uL (0-0); METAMYELOCYTES% (MANUAL) 1 % (0-1); MONOS#(MANUAL) 0.72 x10^3/uL (0.3-2.7); MONOS% (MANUAL) 5 % (2-9); NRBC % (MANUAL) 1 % (0-1); SEG#(MANUAL) 12.16 x10^3/uL (1.8-6.8); SEGS% (MANUAL) 85 % (42-75)
[2019-08-11 15:15] LABS: <PLATELET ESTIMATE> ADEQUATE; <PLT MORPHOLOGY> NORMAL PLT MORPH; ANISOCYTOSIS 1+; POLYCHROMASIA 1+
[2019-08-11] MEDS ORDERED: ASCO500T6 PO (16:18)
[2019-08-11] MEDS ORDERED: CHOL400T2 PO (16:18)
[2019-08-11] MEDS: CHOLECALCIFEROL 400 UNITS TABLET PO SCH (17:00)
== END 2019-08-11 18:01 | disposition home health service (06) | DRG 377 ==
LOC: ED 17:12 → EDIP 17:13 → ED 18:41 → 4EST 19:52
PROVIDERS: ADMIT Internal Medicine; ATTEND Family Medicine
PROC: 0DB68ZX Excision of Stomach, Via Natural or Artificial Opening Endoscopic, Diagnostic (ICD-10-PCS; 2019-08-09)
PROC: 30233N1 Transfusion of Nonautologous Red Blood Cells into Peripheral Vein, Percutaneous Approach (ICD-10-PCS; principal; 2019-08-09 16:00)
DX: K29.71 Gastritis, unspecified, with bleeding (principal); N17.0 Acute kidney failure with tubular necrosis; D62 Acute posthemorrhagic anemia; E66.2 Morbid (severe) obesity with alveolar hypoventilation; F33.9 Major depressive disorder, recurrent, unspecified; R65.10 Systemic inflammatory response syndrome (SIRS) of non-infectious origin without acute organ dysfunction; J96.10 Chronic respiratory failure, unspecified whether with hypoxia or hypercapnia; Z68.42 Body mass index [BMI] 45.0-49.9, adult; E87.1 Hypo-osmolality and hyponatremia; I42.9 Cardiomyopathy, unspecified; I50.32 Chronic diastolic (congestive) heart failure; I13.0 Hypertensive heart and chronic kidney disease with heart failure and stage 1 through stage 4 chronic kidney disease, or unspecified chronic kidney disease; I42.2 Other hypertrophic cardiomyopathy; D72.829 Elevated white blood cell count, unspecified; E03.9 Hypothyroidism, unspecified; E87.6 Hypokalemia; G89.29 Other chronic pain; J44.9 Chronic obstructive pulmonary disease, unspecified; K44.9 Diaphragmatic hernia without obstruction or gangrene; N18.9 Chronic kidney disease, unspecified; K59.00 Constipation, unspecified; M54.9 Dorsalgia, unspecified; G62.9 Polyneuropathy, unspecified; R73.9 Hyperglycemia, unspecified; Z82.3 Family history of stroke; Z82.49 Family history of ischemic heart disease and other diseases of the circulatory system; Z87.19 Personal history of other diseases of the digestive system; Z90.710 Acquired absence of both cervix and uterus; Z99.81 Dependence on supplemental oxygen
CPT/HCPCS: 36415; 36430; 74176; 78278; 80048; 80053; 80069; 83036; 83540; 83550; 83735; 84132; 84436; 84443; 84484; 85014; 85018; 85025; 85610; 85730; 86850; 86900; 86923; 88305; 88342; 93005; 93306; 99285; G0378; J0610; J2704; J3480; A9560; J3475; J7040; J7050; P9016

== ENCOUNTER 2020-09-01 10:42 | Emergency (ER) | payer MEDICARE ==
[~2020-09-01] VITALS: Ht 175.3 cm; Wt 142.5 kg
[~2020-09-01 10:42] MED LIST changes: +ASCO500T9 PO; +CHOL400T2 PO; +HYDR-3246 PO; -HYDR-36 PO; -ROPI2TAB4 PO; +ROPI2TAB8 PO
--- NOTE | 2020-09-01 11:07 | NUR ---
PATIENT ARRIVES WITH NAUSEA FOR THREE DAYS. SHE HAS OXYGEN WITH HER FROM HOME AND WAERS 2 LITERS IN DAY AND 4 LITERS AT NIGHT FOR COPD. SHE HAS PULM HTN. HYPERTROPHIC CARDIOMYOPATHY. 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 HTN.
[2020-09-01] MEDS ORDERED: ONDANSETRON ODT 8 MG PO ONE (11:30)
[2020-09-01 11:45] LABS: BASOPHILS % (AUTO) 1 % (0-1); EOSINOPHILS % (AUTO) 4 % (1-7); LYMPHOCYTES % (AUTO) 20 % (22-44); MEAN CORPUSCULAR HEMOGLOBIN 31.5 pg (27.0-34.8); MEAN CORPUSCULAR HGB CONC 33.8 g/dL (32.4-35.8); MONOCYTES % (AUTO) 9 % (2-9); NEUTROPHILS % (AUTO) 67 % (42-75); PLATELET COUNT 227 x10^3/uL (130-400); RED BLOOD COUNT 4.29 x10^6/uL (3.82-5.3); RED CELL DISTRIBUTION WIDTH 14.2 % (9.6-15.2)
[2020-09-01 11:46] LABS: MD NO
[2020-09-01 11:56] LABS: ALBUMIN 3.6 g/dL (3.4-5.0); CALCIUM 8.9 mg/dL (8.5-10.1); CHLORIDE 105 mmol/L (98-107)
[2020-09-01] MEDS ORDERED: ONDANSETRON ODT 4 MG ONE (12:03)
[2020-09-01 12:04] LABS: ALANINE AMINOTRANSFERASE 25 U/L (12-78); ALKALINE PHOSPHATASE 56 U/L (45-117); BILIRUBIN,TOTAL 0.7 mg/dL (0.2-1.0); CREATININE 0.87 mg/dL (0.55-1.02); TOTAL PROTEIN 7.8 g/dL (6.4-8.2)
[2020-09-01 12:11] LABS: ANION GAP 3 mmol/L (5-15)
[2020-09-01 12:32] VITALS: BP 148/88
== END 2020-09-01 12:43 | disposition home or self-care (01) ==
LOC: ED 11:52
DX: B34.9 Viral infection, unspecified (principal); Z20.822 Contact with and (suspected) exposure to COVID-19; M79.10 Myalgia, unspecified site; R11.10 Vomiting, unspecified; I10 Essential (primary) hypertension; E03.9 Hypothyroidism, unspecified; Z90.49 Acquired absence of other specified parts of digestive tract; Z90.710 Acquired absence of both cervix and uterus
CPT/HCPCS: 71045; 80053; 82728; 83605; 83615; 84145; 85025; 86140; 87040; 87635; 93005; 99285; Q0162; 99281

== ENCOUNTER 2020-09-27 08:59 | Day surgery (SDC) | payer MEDICARE ==
[~2020-09-27] VITALS: Ht 172.7 cm; Wt 143.2 kg
[~2020-09-27 08:59] MED LIST changes: -DILT60TA30 PO; +DILT60TA36 PO; -HYDR-3246 PO; +HYDR-3248 PO; -OXYC-302 PO; +OXYC1TAB14 PO
[2020-09-27] MEDS ORDERED: SODIUM CHLORIDE 0.9% 1,000 ML IV SCH ×2 (10:00→13:30)
[2020-09-27] MEDS ORDERED: DIPHENHYDRAMINE 50 MG/ML, 1ML IVPush ONE (10:00)
[2020-09-27 10:12] VITALS: BP 141/84
[2020-09-27] MEDS ORDERED: MAGN400T36 PO (10:29)
[2020-09-27] MEDS ORDERED: CARV3.1212 PO (10:29)
[2020-09-27] MEDS ORDERED: CALC-534 PO (10:29)
[2020-09-27] MEDS ORDERED: CHOL10003 PO (10:29)
[2020-09-27] MEDS ORDERED: ZINC50CA PO (10:29)
[2020-09-27] MEDS ORDERED: LACT1CAP11 PO (10:29)
[2020-09-27] MEDS ORDERED: DIPHENHYDRAMINE 50 MG/ML, 1ML ONE (10:50)
[2020-09-27] MEDS ORDERED: BIVALIRUDIN 250 MG ONE (12:05)
[2020-09-27] MEDS ORDERED: MIDAZOLAM 1 MG/ML, 5ML ONE (12:05)
[2020-09-27] MEDS ORDERED: VERAPAMIL 2.5 MG/ML, 2ML ONE (12:05)
[2020-09-27] MEDS ORDERED: FENTANYL PF 100 MCG/2ML ONE (12:05)
[2020-09-27] MEDS ORDERED: LIDOCAINE-MPF 1%, 5ML ONE (12:06)
[2020-09-27] MEDS ORDERED: HEPARIN 1,000 UNITS/ML, 10ML ONE (12:06)
== END 2020-09-27 14:45 | disposition home or self-care (01) ==
LOC: CACL 08:59
PROVIDERS: ATTEND Internal Medicine Cardiovascular Disease
DX: I42.1 Obstructive hypertrophic cardiomyopathy (principal); I27.9 Pulmonary heart disease, unspecified; I10 Essential (primary) hypertension; G47.30 Sleep apnea, unspecified; Z88.8 Allergy status to other drugs, medicaments and biological substances; Z79.899 Other long term (current) drug therapy; Z98.890 Other specified postprocedural states; Z82.49 Family history of ischemic heart disease and other diseases of the circulatory system
CPT/HCPCS: 36415; 82330; 82803; 82947; 84132; 84295; 85014; 93306; 93356; 93460; 99156; 99157; C1769; C1894; J1200; J1644; J2250; J3010; J7030; Q9967; J0583

== ENCOUNTER 2020-11-25 09:44 | Observation (INO) | payer MEDICARE ==
[~2020-11-25] VITALS: Ht 172.7 cm; Wt 141.7 kg
[2020-11-25] VITALS (8 sets, daily range): BP systolic 113–138; BP diastolic 61–82
[~2020-11-25 09:44] MED LIST changes: +CALC-534 PO; +CARV3.1212 PO; +CHOL10003 PO; +DILT60TA30 PO; -DILT60TA36 PO; +LACT1CAP11 PO; +MAGN400T36 PO; +ZINC50CA PO
--- NOTE | 2020-11-25 10:09 | NUR ---
PT BROUGHT BACK TO ROOM FROM TRIAGE. PT CO WEAKNESS AND NAUSEA. PT TOOK BP AT HOME AND IT WAS 88/50. PT STATES THAT SHE HAS NOT REALLY HAD AN APPETITE THE PAST COUPLE DAYS AND HAS HAD POOR INTAKE. PT STATED THAT SHE TOOK A LASIX PILL YESTERDAY BECAUSE SHE NOTED SOME SWELLING IN HER FEET. PT DENIES ANY PAIN, SOB OR FEVER.
[2020-11-25] MEDS ORDERED: SODIUM CHLORIDE 0.9%, 500ML IVBOLUS ONE (10:30)
--- NOTE | 2020-11-25 11:00 | NUR ---
PT RESTING COMFORTABLY IN BED. CALL LIGHT WITHIN REACH.
[2020-11-25 11:03] LABS: BASOPHILS % (AUTO) 1 % (0-1); EOSINOPHILS % (AUTO) 3 % (1-7); LYMPHOCYTES % (AUTO) 19 % (22-44); MEAN CORPUSCULAR HEMOGLOBIN 31.4 pg (27.0-34.8); MEAN CORPUSCULAR HGB CONC 33.7 g/dL (32.4-35.8); MEAN PLATELET VOLUME 8.1 fL (7.4-10.4); MONOCYTES % (AUTO) 11 % (2-9); NEUTROPHILS % (AUTO) 66 % (42-75); PLATELET COUNT 227 x10^3/uL (130-400); RED BLOOD COUNT 4.38 x10^6/uL (3.82-5.3); RED CELL DISTRIBUTION WIDTH 13.7 % (9.6-15.2)
[2020-11-25 11:05] LABS: MD NO
[2020-11-25 11:15] LABS: ALBUMIN 3.8 g/dL (3.4-5.0); ANION GAP 4 mmol/L (5-15); CALCIUM 9.4 mg/dL (8.5-10.1); CHLORIDE 101 mmol/L (98-107)
[2020-11-25 11:21] LABS: ALANINE AMINOTRANSFERASE 22 U/L (12-78); ALKALINE PHOSPHATASE 58 U/L (45-117); BILIRUBIN,TOTAL 0.7 mg/dL (0.2-1.0); CREATININE 1.05 mg/dL (0.55-1.02); TOTAL PROTEIN 8.4 g/dL (6.4-8.2)
--- NOTE | 2020-11-25 12:13 | NUR ---
PT RESTING COMFORTABLY IN BED. PT AWAITING ROOM ASSIGNMENT.
--- NOTE | 2020-11-25 12:36 | NUR ---
REPORT GIVEN TO CATALINA WETZEL
[2020-11-25] MEDS ORDERED: ACETAMINOPHEN 325 MG TABLET PO PRN (14:00)
[2020-11-25] MEDS: HEPARIN 5,000 UNITS/ML, 1ML SQ SCH ×2 (15:05→21:44)
[2020-11-25] MEDS: SODIUM CHLORIDE 0.9% 1,000 ML IV SCH (15:05)
[2020-11-25 15:52] LABS: D-DIMER 1.07 ug/mlFEU (0.00-0.52); INTERNATIONAL NORMALIZED RATIO 1.11 (0.93-1.1); PROTHROMBIN TIME 11.9 Seconds (9.6-11.5)
[2020-11-25 16:00] LABS: TROPONIN I < 0.015 ng/mL (0.000-0.045)
[2020-11-25] MEDS: ASCORBIC ACID 500 MG TABLET PO SCH (17:35)
[2020-11-25 17:55] LABS: MICROSCOPIC AUTO
[2020-11-25] MEDS: CARVEDILOL 6.25 MG TABLET PO SCH (20:04)
[2020-11-25 21:30] LABS: TROPONIN I < 0.015 ng/mL (0.000-0.045)
[2020-11-25] MEDS ORDERED: PREGABALIN 150 MG CAPSULE PO ONE (23:00)
[2020-11-26 03:00] VITALS: BP 128/72
[2020-11-26] MEDS: SODIUM CHLORIDE 0.9% 1,000 ML IV SCH (03:20)
[2020-11-26] MEDS: HEPARIN 5,000 UNITS/ML, 1ML SQ SCH ×2 (06:00→15:01)
[2020-11-26 06:23] LABS: BASOPHILS % (AUTO) 1 % (0-1); EOSINOPHILS % (AUTO) 4 % (1-7); LYMPHOCYTES % (AUTO) 25 % (22-44); MEAN CORPUSCULAR HEMOGLOBIN 31.7 pg (27.0-34.8); MEAN CORPUSCULAR HGB CONC 33.9 g/dL (32.4-35.8); MEAN PLATELET VOLUME 8.2 fL (7.4-10.4); MONOCYTES % (AUTO) 10 % (2-9); NEUTROPHILS % (AUTO) 60 % (42-75); PLATELET COUNT 201 x10^3/uL (130-400); RED BLOOD COUNT 4.03 x10^6/uL (3.82-5.3); RED CELL DISTRIBUTION WIDTH 13.6 % (9.6-15.2)
[2020-11-26 06:24] LABS: MD NO
[2020-11-26 06:31] LABS: CHLORIDE 102 mmol/L (98-107)
[2020-11-26 06:37] VITALS: BP 131/82
[2020-11-26 06:47] LABS: ALANINE AMINOTRANSFERASE 21 U/L (12-78); ALBUMIN 3.4 g/dL (3.4-5.0); ALKALINE PHOSPHATASE 47 U/L (45-117); ANION GAP 6 mmol/L (5-15); BILIRUBIN,TOTAL 0.8 mg/dL (0.2-1.0); CREATININE 0.86 mg/dL (0.55-1.02); TOTAL PROTEIN 7.6 g/dL (6.4-8.2)
[2020-11-26] MEDS ORDERED: FUROSEMIDE 20 MG/2 ML IV ONE (08:30)
[2020-11-26] MEDS ORDERED: LEVOTHYROXINE 100 MCG TABLET PO SCH (09:00)
[2020-11-26] MEDS: ASCORBIC ACID 500 MG TABLET PO SCH (09:28)
[2020-11-26] MEDS ORDERED: FUROSEMIDE 20 MG/2 ML ONE (09:39)
[2020-11-26] MEDS: CARVEDILOL 6.25 MG TABLET PO SCH (09:41)
[2020-11-26 11:01] VITALS: BP 152/83
[2020-11-26] MEDS ORDERED: SODIUM CHLORIDE 0.9% 1,000 ML IV SCH (14:00)
[2020-11-26] MEDS ORDERED: OMNIPAQUE 350 MG/ML, 100ML BOTTLE ONE (14:24)
[2020-11-26] MEDS ORDERED: OXYcodone IR 5MG TABLET PO ONE (16:30)
[2020-11-26] MEDS ORDERED: OXYcodone IR 5MG TABLET ONE (16:37)
== END 2020-11-26 17:11 | disposition home or self-care (01) ==
LOC: ED 10:48 → EDIP 12:15 → INTOOBSV 12:15 → 4WST 13:04 → UNDODISIN 11-26 17:11
PROVIDERS: ADMIT Hospitalist; ATTEND Hospitalist
DX: I95.9 Hypotension, unspecified (principal); N17.9 Acute kidney failure, unspecified; J96.11 Chronic respiratory failure with hypoxia; K52.9 Noninfective gastroenteritis and colitis, unspecified; I42.8 Other cardiomyopathies; I34.0 Nonrheumatic mitral (valve) insufficiency; I10 Essential (primary) hypertension; R00.2 Palpitations; G89.29 Other chronic pain; M54.9 Dorsalgia, unspecified; E03.9 Hypothyroidism, unspecified; E66.01 Morbid (severe) obesity due to excess calories; G47.33 Obstructive sleep apnea (adult) (pediatric); K44.9 Diaphragmatic hernia without obstruction or gangrene; Z87.19 Personal history of other diseases of the digestive system; Z79.899 Other long term (current) drug therapy; Z90.710 Acquired absence of both cervix and uterus; Z87.891 Personal history of nicotine dependence
CPT/HCPCS: 36415; 71045; 71275; 74176; 80053; 81001; 82533; 82607; 83735; 83880; 84100; 84443; 84484; 85025; 85379; 85610; 87086; 93005; 93970; 96361; 96372; 96374; 97161; 97165; 99285; G0378; J1644; J1940; J7030; J7040; Q9967; 96360

== ENCOUNTER → 2021-01-07 | Outpatient (CLI) | payer MEDICARE | END | disposition home or self-care (01) | LOC: RAD 12:14 | PROVIDERS: ATTEND Thoracic Surgery (Cardiothoracic Vascular Surgery) | DX: K44.9 Diaphragmatic hernia without obstruction or gangrene (principal); K21.9 Gastro-esophageal reflux disease without esophagitis | CPT/HCPCS: 74240 ==

== ENCOUNTER 2021-05-13 09:58 | Outpatient (CLI) | payer MEDICARE ==
[~2021-05-13] VITALS: Ht 172.7 cm; Wt 134.0 kg
[~2021-05-13 09:58] MED LIST changes: +ALBU8.5H8 INH; +B CO1CAP5 PO; +CALC1CAP8 PO; +CITA10TA4 PO; +CRAN1TAB5 PO; +OXYB5TAB10 PO; +OXYC1TAB12 PO; -OXYC1TAB14 PO; +OXYC5CAP2 PO; +PUMP300C PO
[2021-05-13 10:06] LABS: BASOPHILS % (AUTO) 1 % (0-1); EOSINOPHILS % (AUTO) 2 % (1-7); LYMPHOCYTES % (AUTO) 16 % (22-44); MEAN CORPUSCULAR HEMOGLOBIN 31.9 pg (27.0-34.8); MEAN CORPUSCULAR HGB CONC 34.3 g/dL (32.4-35.8); MEAN PLATELET VOLUME 8.9 fL (7.4-10.4); MONOCYTES % (AUTO) 10 % (2-9); NEUTROPHILS % (AUTO) 72 % (42-75); PLATELET COUNT 191 x10^3/uL (130-400); RED BLOOD COUNT 4.33 x10^6/uL (3.82-5.3); RED CELL DISTRIBUTION WIDTH 14.8 % (9.6-15.2)
[2021-05-13 10:17] LABS: ALANINE AMINOTRANSFERASE 54 U/L (12-78); ALBUMIN 3.7 g/dL (3.4-5.0); ANION GAP 7 mmol/L (5-15); CALCIUM 9.9 mg/dL (8.5-10.1); CHLORIDE 105 mmol/L (98-107); CREATININE 0.92 mg/dL (0.55-1.02)
[2021-05-13 10:20] LABS: ALKALINE PHOSPHATASE 57 U/L (45-117); BILIRUBIN,TOTAL 0.8 mg/dL (0.2-1.0); TOTAL PROTEIN 8.1 g/dL (6.4-8.2)
== END 2021-05-13 23:59 | disposition home or self-care (01) ==
LOC: LAB 09:58 → EDSTATUS 05-15 11:00
PROVIDERS: ATTEND Thoracic Surgery (Cardiothoracic Vascular Surgery)
DX: Z01.818 Encounter for other preprocedural examination (principal); E66.01 Morbid (severe) obesity due to excess calories
CPT/HCPCS: 36415; 80053; 85025; 93005; U0005; U0003